=== PATIENT | female | born 1960 | race Caucasian/White ===

== ENCOUNTER → 2016-12-04 | Outpatient (CLI) | payer BC ==
[~2016-12-04] MED LIST: ATEN-173 PO; GABA-112 PO; LISI-725 PO; NARA2.5T2; NORT50CA PO
[2016-12-04 18:26] LABS: ALT/SGPT 52 U/L (12-78); AST/SGOT 97 U/L (15-37); BASO % 0.7 %; BASO ABS # 0.04 K/uL (0-0.2); BLOOD UREA NITROGEN 12 mg/dl (7-18); BUN/CREATININE RATIO 16.4 (10-20); CALCIUM 9.1 mg/dl (8.5-10.1); CARBON DIOXIDE 31 mmol/L (21-32); CHLORIDE 104 mmol/L (98-107); COMPLETE YES; CREATININE 0.75 mg/dl (0.60-1.20); GLUCOSE 96 mg/dl (70-99); HEMATOCRIT 42.6 % (37-47); IG% 0.2 %; LYMPH % 27.1 %; MEAN PLATELET VOLUME 12.9 fL (7.4-10.4); MONO % 9.9 %; NEUT % 51.1 %; PLATELET COUNT 110 K/uL (130-400); PLT ESTIMATE DECREASED; POTASSIUM 4.2 mmol/L (3.5-5.1); RED BLOOD COUNT 4.68 M/uL (4.2-5.4); SODIUM 139 mmol/L (136-145); WHITE BLOOD COUNT 5.53 K/uL (4.8-10.8)
[2016-12-04 18:37] LABS: ALB/GLOB RATIO 0.9 (0.9-2); ALKALINE PHOSPHATASE 137 U/L (45-117)
== END | disposition home or self-care (01) ==
LOC: C.LABMFLN 15:06
PROVIDERS: ATTEND Physician Assistant
DX: R00.2 Palpitations (principal); R23.8 Other skin changes; R53.83 Other fatigue

== ENCOUNTER → 2017-10-08 | Outpatient (CLI) | payer BC | END | disposition home or self-care (01) | LOC: C.LABMFLN 08:37 | PROVIDERS: ATTEND Physician Assistant | DX: M54.5 Low back pain (principal) ==

== ENCOUNTER 2022-06-13 18:17 | Inpatient (IN) ==
[2022-06-13] MEDS ORDERED: ALBUT/IPRATROP 3MG/0.5MG NEB 3 ML VIAL NEB ONE (19:16)
[2022-06-13] MEDS ORDERED: DEXAMETHASONE SOD INJ 4 MG/ML VIAL IV STA (19:16)
--- NOTE | 2022-06-13 19:33 | XRay Report ---
XR chest 1V portable HISTORY: 62 years-old Female Sepsis acute sepsis COMPARISON: 05/13/2022 TECHNIQUE: AP view of the chest FINDINGS: Cardiac silhouette is enlarged. Moderate hemidiaphragmatic elevation. Mild nonspecific interstitial c oarsening. No pneumothorax, large pleural effusion or lobar airspace consolidation. Bones appear tiffanie sly intact. IMPRESSION: 1. Interstitial coarsening may be related to pulmonary vascular congestion versus a mild nonspecific pneumonitis. 2. Moderate right hemidiaphragmatic elevation. ACT 112: Negative or not required by law. The above report was generated using voice recognition software. It may contain grammatical, syntax o r spelling errors. Electronically signed by: Thom Romero M.D. 06/13/2022 7:32 PM
--- NOTE | 2022-06-13 19:38 | Emergency Department Note ---
Impression & Plan Hypoxia, Acute bronchitis Admit to the [facility] ED Provider Note NAME: PEEWEE FITZGERALD AGE: 62 SEX: F ARRIVES VIA: Walk-In INFORMANT: Patient ED PROVIDER(S): Ellen Baker DO CHIEF COMPLAINT: Shortness of breath, cough and fever PLAN: Disposition: Admit to the [facility] Condition: Stable on supplemental oxygen MEDICAL DECISION MAKING: This is a 62-year-old female patient with a history of bronchitis who presents to the emergency department with significant cough, shortness of breath and fever. Chest x-ray showed no evidence of pulmonary opacity or consolidation. There was mild pulmonary vascular congestion. Laboratory studies showed no leukocytosis. She was thrombocytopenic which is a chronic issue for this patient. Patient's H/H were elevated. There was no evidence of renal insufficiency or significant electrolyte abnormality. Her clinical presentation was consistent with an acute episode of bronchitis. Her O2 saturations would not remain above 90% without supplemental oxygen. Patient's clinical presentation improved only slightly after an hour-long DuoNeb treatment and IV Decadron. the wheezing improved and she felt slightly more comfortable. I did not feel the patient was appropriate for discharge and [facility] for further management. Triage Nursing notes reviewed and agree with them. Vital Signs: reviewed and remarkable for hypoxia tachycardia and hypertension Differential diagnosis: Pneumonia, bronchitis, COVID-19, influenza ER treatment provided: Supplemental oxygen, threat monitoring analyst, hour-long DuoNeb treatment, IV Decadron Diagnostics interpreted by me: ECG: Normal sinus rhythm at a rate of [address] segment elevation or signs of ischemia. There is no ectopy. QTc is 420 ms. Cardiac Monitoring: Sinus tachycardia at 110 Laboratory studies: See below Imaging studies: As per radiology interpretation my review Portable chest x-ray: See report HPI: 62/F arrives for evaluation of cough, shortness of breath, and fever. Patient developed cough, shortness of breath and fever approximately 5 days ago. Symptoms have persisted. Her PCP recommended that she come to the hospital 3 days ago when she had a pulse ox that was below 90. Patient had her initial 2 COVID shots but did not have any boosters. She has remote history of smoking. She does have a history of intermittent episodes of chest pain. She denies any history of pneumonia but has had bronchitis in the past PAST MEDICAL HISTORY:Bronchitis, hypertension, depression and anxiety. PAST SURGICAL HISTORY:See Below FAMILY HISTORY:See Below SOCIAL HISTORY:See Below HOME MEDICATIONS: See list ALLERGIES: None VITALS:See Below PHYSICAL EXAMINATION: HEENT: Head - normocephalic and atraumatic. Pupils are equal, round, and reactive to light. Extraocular eye muscles are intact, and sclera are anicteric. Nose - moist nasal mucosa without discharge. Mouth - moist buccal mucosa. Oropharynx is nonerythematous and there is no tonsillar exudate or edema noted. Neck: Supple; no JVD or cervical lymphadenopathy Heart: Tachycardic rate and rhythm. There is a normal S1 and S2 with no murmurs, clicks, or gallops appreciated. Lungs: Diffuse inspiratory and expiratory wheezes with rhonchi at the bases. Abdomen: Soft, completely nontender, nondistended, with good bowel sounds. There are no palpable pulsatile masses or hepatosplenomegaly. There is no guarding, rigidity, or rebound noted. Extremities: No evidence of cyanosis, clubbing, or edema. There are easily pa lpable peripheral pulses. Skin: warm and diaphoretic with good turgor and no rashes. ED COURSE: Times/Reassessments: 700 the patient was evaluated in room C6. A complete history and physical was performed. An IV lock was initiated and COVID testing was performed. Patient was placed on the threat monitoring analyst and pulse oximeter. Patient was in a sinus tachycardia at a rate of 110. A twelve-lead EKG was obtained as described above. Patient was hypoxic without supplemental oxygen. Portable chest x-ray was performed. An hour-long DuoNeb was initiated. She was given 10 mg of IV Decadron. I reevaluated the patient as the DuoNeb continued. Her respiratory rate had come down somewhat and she seemed to be breathing more easily. O2 saturations were in the mid 90s. I reviewed the results of the chest x-ray with her. After the DuoNeb treatment was complete and the patient was given some time to rest, we removed supplemental oxygen and the O2 saturations dropped into the 80s. I will discussed the case with the [facility] Hospitalist and they will evaluate for further management. I have personally spent greater than 30 minutes of critical care time in the direct management of this patient. This includes bedside care, interpretation of diagnostic studies, and testing, discussion with consultants, patient, and family members, and other required patient management activities. This 30 minutes is in excess of all separately billable procedures. Ellen Baker DO Past Med/Surg History Medical History (Updated 06/14/22 @ 16:52 by Ellen Baker DO) Anxiety Depression Glaucoma HTN (hypertension) Hypothyroidism Neuropathy feet/hands Surgical History History of appendectomy Hx of section x3 Hx of eye surgery right - tear Hx of tonsillectomy Hx of tooth extraction full mouth extraction - upper dentures Hx of wisdom tooth extraction Family History Mother Diabetes Aunt Breast cancer Social History Smoking Status: Former smoker Smoking End Date: stopped 2 years ago; Second Hand Exposure: No; Hx Alcohol Use: No (stopped) Hx Substance Use: No Preferred Language: Turkish Communication Ability: Effective Weigh Machine Operator Required: No Beliefs That Will Affect Care: None Current Living Situation: Family Current Living Situation Comment: lives with [facility] Other Information That Helps Us Care for You: No Feels Safe at Home: Yes Safety Concerns: Feels Safe At This Time Assistive Devices: Denture - Upper and Glasses Allergies Allergies Allergy/AdvReac Type Severity Reaction Status Date / Time No Known Allergies Allergy Verified 06/13/22 20:31 Home Meds Home Medications Medication Instructions Recorded Confirmed bupropion HCl 150 mg 24 hr tablet, 150 mg PO QAM 02/04/22 06/13/22 extended release (Wellbutrin XL) gabapentin 600 mg tablet 600 mg PO DAILY PRN Neuropathy 02/04/22 06/13/22 levothyroxine 75 mcg tablet 75 mcg PO DAILYBB 02/04/22 06/13/22 lisinopril 20 mg tablet 20 mg PO QAM 02/04/22 06/13/22 timolol 0.25 % eye drops 1 drp [facility] 02/04/22 06/13/22 Results & Data (ED) Vital Signs Vital Signs - 24 hr 06/13/22 18:23 06/13/22 18:27 06/13/22 19:05 Temperature 36.7 C Temperature Source Temporal Artery Scan Pulse Rate 101 H Pulse Rate [Apical] Pulse Rate from SpO2 Sensor Pulse Rhythm [Apical] Pulse Strength [Apical] Respiratory Rate 26 H Respiratory Effort / Characteristics Respiratory Depth Respiratory Pattern Blood Pressure 158/88 H Blood Pressure [Left Arm] Blood Pressure Mean 111 Blood Pressure Mean [Left Arm] Pulse Oximetry 88 L 94 94 Oxygen Delivery Method Room Air Nasal Cannula Nasal Cannula Oxygen Flow Rate 2 2 Sepsis Recent Fever Within 48 Hours Yes Sepsis New/Unexplained Change in Mental Status N/A Sepsis Action Taken by Nursing No Action Required 06/13/22 19:05 06/13/22 19:05 06/13/22 19:05 Temperature Temperature Source Pulse Rate 95 H Pulse Rate [Apical] Pulse Rate from SpO2 Sensor Pulse Rhythm [Apical] Pulse Strength [Apical] Respiratory Rate 24 22 Respiratory Effort / Characteristics Spontaneous Accessory Muscle Use Labored Respiratory Depth Respiratory Pattern Blood Pressure Blood Pressure [Left Arm] Blood Pressure Mean Blood Pressure Mean [Left Arm] Pulse Oximetry 94 94 94 Oxygen Delivery Method Nasal Cannula Nasal Cannula Nasal Cannula Oxygen Flow Rate 2 2 2 Sepsis Recent Fever Within 48 Hours Sepsis New/Unexplained Change in Mental Status Sepsis Action Taken by Nursing 06/13/22 19:31 06/13/22 19:50 06/13/22 19:51 Temperature Temperature Source Pulse Rate Pulse Rate [Apical] 97 H 93 H Pulse Rate from SpO2 Sensor Pulse Rhythm [Apical] Regular Pulse Strength [Apical] Normal Respiratory Rate 20 21 Respiratory Effort / Characteristics Non-Labored Spontaneous Spontaneous Accessory Muscle Use Short of Breath Spontaneous Short of Breath Respiratory Depth Normal Respiratory Pattern Regular Blood Pressure Blood Pressure [Left Arm] 134/95 Blood Pressure Mean Blood Pressure Mean [Left Arm] 108 Pulse Oximetry 94 96 97 Oxygen Delivery Method Nasal Cannula Nasal Cannula Nasal Cannula Oxygen Flow Rate 2 2 2 Sepsis Recent Fever Within 48 Hours Sepsis New/Unexplained Change in Mental Status Sepsis Action Taken by Nursing 06/13/22 20:30 06/13/22 21:00 06/13/22 22:00 Temperature Temperature Source Pulse Rate 105 H 105 H 102 H Pulse Rate [Apical] Pulse Rate from SpO2 Sensor 105 H 105 H Pulse Rhythm [Apical] Pulse Strength [Apical] Respiratory Rate 20 16 17 Respiratory Effort / Characteristics Respiratory Depth Respiratory Pattern Blood Pressure 121/90 139/87 116/83 Blood Pressure [Left Arm] Blood Pressure Mean 100 104 94 Blood Pressure Mean [Left Arm] Pulse Oximetry 93 92 93 Oxygen Delivery Method Nasal Cannula Nasal Cannula Nasal Cannula Oxygen Flow Rate 2 2 2 Sepsis Recent Fever Within 48 Hours Sepsis New/Unexplained Change in Mental Status Sepsis Action Taken by Nursing 06/13/22 22:30 06/13/22 22:50 06/13/22 23:00 Temperature Temperature Source Pulse Rate 94 H 97 H 93 H Pulse Rate [Apical] Pulse Rate from SpO2 Sensor 96 H 97 H 93 H Pulse Rhythm [Apical] Pulse Strength [Apical] Respiratory Rate 21 23 21 Respiratory Effort / Characteristics Respiratory Depth Respiratory Pattern Blood Pressure 123/91 126/78 Blood Pressure [Left Arm] Blood Pressure Mean 101 94 Blood Pressure Mean [Left Arm] Pulse Oximetry 91 88 L 87 L Oxygen Delivery Method Room Air Room Air Room Air Oxygen Flow Rate Sepsis Recent Fever Within 48 Hours Sepsis New/Unexplained Change in Mental Status Sepsis Action Taken by Nursing 06/13/22 23:30 Temperature Temperature Source Pulse Rate 102 H Pulse Rate [Apical] Pulse Rate from SpO2 Sensor 102 H Pulse Rhythm [Apical] Pulse Strength [Apical] Respiratory Rate 21 Respiratory Effort / Characteristics Respiratory Depth Respiratory Pattern Blood Pressure 107/73 Blood Pressure [Left Arm] Blood Pressure Mean 84 Blood Pressure Mean [Left Arm] Pulse Oximetry 93 Oxygen Delivery Method Nasal Cannula Oxygen Flow Rate 1 Sepsis Recent Fever Within 48 Hours Sepsis New/Unexplained Change in Mental Status Sepsis Action Taken by Nursing Laboratory Data 06/13/22 19:33 06/13/22 19:33 Lab Results 06/13/22 06/13/22 06/13/22 Range/Units 19:33 19:33 19:33 WBC 5.21 (4.8-10.8) K/ul RBC 5.15 (3.93-5.22) M/uL Hgb 16.4 H (12.0-16.0) g/dl Hct 47.0 H (34.1-44.9) % MCV 91.3 (80.0-100.0) fL MCH 31.8 (25.0-34.0) pg MCHC 34.9 (32.0-36.0) g/dL RDW Std Deviation 48.4 H (36.4-46.3) fL RDW Coeff of Elvira 14.4 (11.5-14.5) % Plt Count 90 L (130-400) K/uL MPV 12.3 (9.4-12.3) fL Immature Gran % (Auto) 0.4 % Neut % (Auto) 60.6 % Lymph % (Auto) 23.4 % [place] % (Auto) 13.1 % Eos % (Auto) 2.1 % Baso % (Auto) 0.4 % Neut # (Auto) 3.16 (1.4-6.5) K/uL Lymph # (Auto) 1.22 (1.2-3.4) K/uL [place] # (Auto) 0.68 (0.24-0.82) K/uL Eos # (Auto) 0.11 (0-0.50) K/uL Baso # (Auto) 0.02 (0-0.2) K/uL Immature Gran # (Auto) 0.02 (0.00-0.02) K/uL Platelet Estimate Decreased L (Normal) PT 13.5 H (9.0-12.0) Seconds INR 1.3 H (0.9-1.1) APTT 29.9 (21.0-31.0) Seconds PTT Ratio 1.1 Sodium 136 (136-145) mmol/L Potassium 3.8 (3.5-5.1) mmol/L Chloride 102 (98-107) mmol/L Carbon Dioxide 24 (21-32) mmol/L Anion Gap 10 (3-11) BUN 8 (6-23) mg/dl Creatinine 0.85 (0.6-1.2) mg/dl Est Cr Clr Drug Dosing 69.6 ml/min Est GFR ( Amer) 85.1 ml/min Est GFR (Non-Af Amer) 73.4 ml/min BUN/Creatinine Ratio 9.4 L (10-20) Glucose 94 (70-99(Fasting)) mg/dl Lactate (0.4-2.0) mmol/L Calcium 8.7 (8.5-10.1) mg/dl Magnesium 1.8 (1.7-2.4) mg/dl Total Bilirubin 1.2 H (0.2-1.0) mg/dl Direct Bilirubin 0.4 H (0-0.2) mg/dl AST 114 H (13-39) U/L ALT 50 (7-52) U/L Alkaline Phosphatase 115 H (34-104) U/L Troponin I High Sens 8.7 (0-14) pg/ml Total Protein 7.3 (6.0-8.3) gm/dl Albumin 3.6 (3.4-5.0) gm/dl Globulin 3.7 (2.5-4.0) gm/dl Albumin/Globulin Ratio 1.0 (0.9-2) Procalcitonin (0-0.5) ng/ml SARS-CoV-2 (PCR) (Negative) Influenza Type A (PCR) (Neg) Influenza Type B (PCR) (Neg) RSV (RT-PCR) (Neg) 06/13/22 06/13/22 06/13/22 Range/Units 19:33 19:33 19:36 WBC (4.8-10.8) K/ul RBC (3.93-5.22) M/uL Hgb (12.0-16.0) g/dl Hct (34.1-44.9) % MCV (80.0-100.0) fL MCH (25.0-34.0) pg MCHC (32.0-36.0) g/dL RDW Std Deviation (36.4-46.3) fL RDW Coeff of Elvira (11.5-14.5) % Plt Count (130-400) K/uL MPV (9.4-12.3) fL Immature Gran % (Auto) % Neut % (Auto) % Lymph % (Auto) % [place] % (Auto) % Eos % (Auto) % Baso % (Auto) % Neut # (Auto) (1.4-6.5) K/uL Lymph # (Auto) (1.2-3.4) K/uL [place] # (Auto) (0.24-0.82) K/uL Eos # (Auto) (0-0.50) K/uL Baso # (Auto) (0-0.2) K/uL Immature Gran # (Auto) (0.00-0.02) K/uL Platelet Estimate (Normal) PT (9.0-12.0) Seconds INR (0.9-1.1) APTT (21.0-31.0) Seconds PTT Ratio Sodium (136-145) mmol/L Potassium (3.5-5.1) mmol/L Chloride (98-107) mmol/L Carbon Dioxide (21-32) mmol/L Anion Gap (3-11) BUN (6-23) mg/dl Creatinine (0.6-1.2) mg/dl Est Cr Clr Drug Dosing ml/min Est GFR ( Amer) ml/min Est GFR (Non-Af Amer) ml/min BUN/Creatinine Ratio (10-20) Glucose (70-99(Fasting)) mg/dl Lactate 1.8 (0.4-2.0) mmol/L Calcium (8.5-10.1) mg/dl Magnesium (1.7-2.4) mg/dl Total Bilirubin (0.2-1.0) mg/dl Direct Bilirubin (0-0.2) mg/dl AST (13-39) U/L ALT (7-52) U/L Alkaline Phosphatase (34-104) U/L Troponin I High Sens (0-14) pg/ml Total Protein (6.0-8.3) gm/dl Albumin (3.4-5.0) gm/dl Globulin (2.5-4.0) gm/dl Albumin/Globulin Ratio (0.9-2) Procalcitonin 0.06 (0-0.5) ng/ml SARS-CoV-2 (PCR) NEGATIVE (Negative) Influenza Type A (PCR) Negative (Neg) Influenza Type B (PCR) Negative (Neg) RSV (RT-PCR) Negative (Neg) Administered Medications Albuterol (Albut/Ipratrop 3mg/0.5mg Neb 3 Ml Vial) 3 ml NEB QIDR [facility]; Protocol Stop: 07/14/22 06:59 Last Admin: 06/14/22 15:12 Dose: 3 ml Documented By: Admin: 06/14/22 11:00 Dose: 3 ml Documented By: Admin: 06/14/22 07:01 Dose: 3 ml Documented By: MATT Azithromycin (Azithromycin 250 Mg Tab) 250 mg PO [facility] Stop: 06/17/22 09:01 Last Admin: 06/14/22 13:09 Dose: 250 mg Documented By: CHERYL Bupropion HCl (Bupropion Xl 150 Mg Tabcr) 150 mg PO [facility] Stop: 07/14/22 08:59 Last Admin: 06/14/22 09:28 Dose: 150 mg Documented By: CHERYL Gabapentin (Gabapentin 600 Mg Tab) 600 mg PO DAILY PRN PRN Reason: Neuropathy Stop: 07/14/22 02:03 Last Admin: 06/14/22 09:28 Dose: 600 mg Documented By: CHERYL Guaifenesin (Guaifenesin 600 Mg Tabcr) 1,200 mg PO Q12 [facility] Stop: 07/14/22 08:59 Last Admin: 06/14/22 09:27 Dose: 1,200 mg Documented By: CHERYL Methylprednisolone 40 mg/ (Syringe) 0.64 mls @ 1.5 mls/min IV BID JACOB Stop: 06/14/22 21:00 Last Admin: 06/14/22 10:08 Dose: 1.5 mls/min Documented By: CHERYL Levothyroxine Sodium (Levothyroxine Sodium 75 Mcg Tablet) 75 mcg PO DAILYBB [facility] Stop: 07/14/22 06:29 Last Admin: 06/14/22 06:16 Dose: 75 mcg Documented By: ORA Lisinopril (Lisinopril 20 Mg Tab) 20 mg PO QAM JACOB Stop: 07/14/22 08:59 Last Admin: 06/14/22 09:27 Dose: 20 mg Documented By: CHERYL Timolol Maleate (Timolol Maleate 0.25% Op Soln 5 Ml Btl) 1 drops OP BID [facility] Stop: 07/14/22 08:59 Last Admin: 06/14/22 09:28 Dose: 1 drops Documented By: CHERYL Discontinued Medications Albuterol (Albut/Ipratrop 3mg/0.5mg Neb 3 Ml Vial) 12 ml NEB ONE ONE; Protocol Stop: 06/13/22 19:17 Last Admin: 06/13/22 19:30 Dose: 12 ml Documented By: STS Benzonatate (Benzonatate 100 Mg Capsule) 100 mg PO NOW ONE Stop: 06/14/22 02:40 Last Admin: 06/14/22 02:49 Dose: 100 mg Documented By: CR Dexamethasone (Dexamethasone Sod Inj 4 Mg/Ml Vial) 10 mg IV NOW STA Stop: 06/13/22 19:17 Last Admin: 06/13/22 19:44 Dose: 10 mg Documented By: GIGI Hydrocodone Bit/Homatropine Methylb (Hydrocodone/Homatropine Syrup 5mg/1.5mg 5ml Udp) 5 ml PO NOW STA Stop: 06/14/22 08:58 Last Admin: 06/14/22 09:26 Dose: 5 ml Documented By: CHERYL Azithromycin 500 mg/ Dextrose 255 mls @ 125 mls/hr IV ONE ONE Stop: 06/14/22 05:02 Last Infusion: 06/14/22 04:52 Dose: 0 mls/hr Documented By: Admin: 06/14/22 02:49 Dose: 125 mls/hr Documented By: ORA Imaging Data Radiologist's Impression: Chest X-Ray 06/13/22 19:12 XR chest 1V portable HISTORY: 62 years-old Female Sepsis acute sepsis COMPARISON: 05/13/2022 TECHNIQUE: AP view of the chest FINDINGS: Cardiac silhouette is enlarged. Moderate hemidiaphragmatic elevation. Mild nonspecific interstitial coarsening. No pneumothorax, large pleural effusion or lobar airspace consolidation. Bones appear grossly intact. IMPRESSION: 1. Interstitial coarsening may be related to pulmonary vascular congestion versus a mild nonspecific pneumonitis. 2. Moderate right hemidiaphragmatic elevation. ACT 112: Negative or not required by law. The above report was generated using voice recognition software. It may contain grammatical, syntax or spelling errors. Electronically signed by: Thom Romero M.D. 06/13/2022 7:32 PM Discharge Plan Visit Data Chief Complaint: Shortness of Breath/Dyspnea Stated Complaint: SOB, CHEST PAIN, COUGH, FEVER ED Provider: Ellen Baker Discharge Problem: Hypoxia, Acute bronchitis Patient Disposition: Admitted As Inpatient Discharge Instructions Interventions: ED Discharge Assessment Last Done: 06/14/22 02:24 : Acute bronchitis Qualifiers: Bronchitis organism: unspecified organism Qualified Code(s): J20.9 - Acute bronchitis, unspecified
[2022-06-13 19:52] LABS: Hemoglobin 16.4 g/dl (12.0-16.0); Mean Corpuscular Hemoglobin 31.8 pg (25.0-34.0); Mean Corpuscular Hgb Conc 34.9 g/dL (32.0-36.0); Mean Corpuscular Volume 91.3 fL (80.0-100.0); RDW Coefficient of Variation 14.4 % (11.5-14.5); RDW Standard Deviation 48.4 fL (36.4-46.3); Red Blood Count 5.15 M/uL (3.93-5.22); White Blood Count 5.21 K/ul (4.8-10.8)
[2022-06-13 19:56] LABS: INR 1.3 (0.9-1.1); Partial Thromboplastin Ratio 1.1; Partial Thromboplastin Time 29.9 Seconds (21.0-31.0); Prothrombin Time 13.5 Seconds (9.0-12.0)
[2022-06-13 20:07] LABS: Basophils # (auto) 0.02 K/uL (0-0.2); Basophils % (auto) 0.4 %; Eosinophils # (auto) 0.11 K/uL (0-0.50); Eosinophils % (auto) 2.1 %; Immature Granulocytes # (auto) 0.02 K/uL (0.00-0.02); Immature Granulocytes % (auto) 0.4 %; Lymphocytes # (auto) 1.22 K/uL (1.2-3.4); Lymphocytes % (auto) 23.4 %; Mean Platelet Volume 12.3 fL (9.4-12.3); Monocytes # (auto) 0.68 K/uL (0.24-0.82); Monocytes % (auto) 13.1 %; Neutrophils # (auto) 3.16 K/uL (1.4-6.5); Neutrophils % (auto) 60.6 %; Platelet Count 90 K/uL (130-400); Platelet Estimate Decreased (Normal)
[2022-06-13 20:08] LABS: Albumin Level 3.6 gm/dl (3.4-5.0); BUN Creatinine Ratio 9.4 (10-20); Bilirubin Direct 0.4 mg/dl (0-0.2); Bilirubin,Total 1.2 mg/dl (0.2-1.0); Calcium 8.7 mg/dl (8.5-10.1); Creatinine Clr Calc Pharmacy 69.6 ml/min; Est GFR (African American) 85.1 ml/min; Est GFR (Non-African American) 73.4 ml/min; Globulin 3.7 gm/dl (2.5-4.0); Magnesium 1.8 mg/dl (1.7-2.4); Potassium 3.8 mmol/L (3.5-5.1); Total Protein 7.3 gm/dl (6.0-8.3)
[2022-06-13 20:09] LABS: Troponin I High Sensitivity 8.7 pg/ml (0-14)
[2022-06-13 20:21] LABS: Influenza A virus by PCR Negative (Neg); Influenza B virus by PCR Negative (Neg); RSV by PCR Negative (Neg); SARS CoV2 RNA(COVID-19) Ceph NEGATIVE (Negative)
--- NOTE | 2022-06-13 23:35 | History & Physical Report ---
Date of Service June 13, 2022 Assessment & Plan (1) Asthmatic bronchitis: (2) Glaucoma: (3) Neuropathy: (4) Hypothyroidism: (5) Depression: (6) Anxiety: (7) HTN (hypertension): Plan Asthmatic bronchitis with hypoxia- Status post dexamethasone 10 mg IV and a DuoNeb treatment in the ED Methylprednisolone 40 mg IV every 8 hours Azithromycin 500 mg IV today, then 250 mg p.o. daily x4 days Guaifenesin extended release 12 mg p.o. every 12 hours Duonebs every 4 hours while awake and every 2 hours when necessary. Nasal cannula oxygen, titrate to keep pulse ox 93-94% Hypertension- Continue lisinopril 20 mg every morning Hypothyroidism- Continue levothyroxine sodium 75 mcg daily Anxiety and depression- Continue bupropion XL 150 mg every morning Peripheral neuropathy- Continue gabapentin 600 mg daily as needed Glaucoma- Continue timolol 1 drop in right eye twice daily History of Present Illness Chief Complaint: The patient presents to the emergency department with complaint of 5 days of pr ogressively worsening cough, shortness of breath and today developed a temperature. Primary Care Provider: Carlos Basurto DO The patient is a 62-year-old female with a past medical history including depression, neuropathy, hypothyroidism, hypertension and glaucoma she presents to the emergency department with complaints noted above. Pulse ox in the emergency department bottomed at a level of 87%, and improved to 93% on 2 L nasal cannula oxygen. She did have some mild subjective improvement following dexamethasone 10 mg IV and a DuoNeb treatment from the ED Allergies Allergy/AdvReac Type Severity Reaction Status Date / Time No Known Allergies Allergy Verified 06/13/22 20:31 Home Medications Medication Instructions Recorded Confirmed Type bupropion HCl 150 mg 24 hr tablet, 150 mg PO QAM 02/04/22 06/13/22 History extended release (Wellbutrin XL) gabapentin 600 mg tablet 600 mg PO DAILY PRN Neuropathy 02/04/22 06/13/22 History levothyroxine 75 mcg tablet 75 mcg PO DAILYBB 02/04/22 06/13/22 History lisinopril 20 mg tablet 20 mg PO QAM 02/04/22 06/13/22 History timolol 0.25 % eye drops 1 drp [facility] 02/04/22 06/13/22 History Past Med/Surg History Medical History (Updated 01/21/23 @ 04:18 by Robbie Soler MD) Anxiety Depression Glaucoma HTN (hypertension) Hypothyroidism Neuropathy feet/hands Surgical History History of appendectomy Hx of section x3 Hx of eye surgery right - tear Hx of tonsillectomy Hx of tooth extraction full mouth extraction - upper dentures Hx of wisdom tooth extraction Family History Mother Diabetes Aunt Breast cancer Social History Smoking Status: Former smoker Smoking End Date: stopped 2 years ago; Second Hand Exposure: No; Hx Alcohol Use: No (stopped) Hx Substance Use: No Preferred Language: Tajik Communication Ability: Effective Online Merchandising Manager Required: No Beliefs That Will Affect Care: None Current Living Situation: Family Current Living Situation Comment: lives with [facility] Other Information That Helps Us Care for You: No Feels Safe at Home: Yes Safety Concerns: Feels Safe At This Time Assistive Devices: Denture - Upper and Glasses Review of Systems Review of Systems: The patient denies chest pain, palpitations, lower extremity swelling, sore throat, fevers, chills, sweats, nausea, vomiting, diarrhea , constipation, abdominal pain, pelvic pain, blood in urine or stool, dysuria, urinary frequency or urgency, lightheadedness, dizziness, headache, memory loss, loss of consciousness, rash, abnormal bruising or bleeding, imbalance, focal or generalized weakness, numbness or tingling in arms or legs, generalized arthralgias or myalgias, back or neck pain, or night sweats. The review of systems is otherwise negative other than for that already noted above, and at least 10 systems have been reviewed. Physical Exam Physical Exam: The patient is awake, alert and oriented 3, well developed and well nourished, normocephalic and atraumatic, lying in bed and in no acute distress. HEENT--PERRL, EOMI, mucous membranes and oropharynx dry. Neck--supple. No JVD. No bruits. Thyroid normal, trachea midline, no adenopathy. Heart--normal S1 and S2. No murmurs, rubs or gallops. Lungs--coarse breath sounds with wheezes bilaterally. No respiratory distress, no accessory muscle use. Abdomen--normal bowel sounds and soft. Nontender. Nondistended, no hernias or masses, no organomegaly. Obese Extremities--no cyanosis or clubbing. No edema. Dermatologic--normal skin turgor, normal color, no abnormal lymph nodes, no rash. Neurologic--cranial nerves II through XII grossly intact. Rheumatologic--normal range of motion. Psychiatric--normal affect. Results & Data Results & Data ([facility]) Vital Signs (Past 12 Hours) Vital Signs Temp Pulse Pulse Resp BP BP Pulse Ox 06/13/22 23:00 93 H 21 126/78 87 L 06/13/22 22:50 97 H 23 88 L 06/13/22 22:30 94 H 21 123/91 91 06/13/22 22:00 102 H 17 116/83 93 06/13/22 21:00 105 H 16 139/87 92 06/13/22 20:30 105 H 20 121/90 93 06/13/22 19:51 97 06/13/22 19:50 93 H 21 134/95 96 06/13/22 19:31 97 H 20 94 06/13/22 19:05 95 H 22 94 06/13/22 19:05 94 06/13/22 19:05 24 94 06/13/22 19:05 94 06/13/22 18:27 94 06/13/22 18:23 36.7 C 101 H 26 H 158/88 H 88 L O2 Del Method O2 Flow Rate 06/13/22 23:00 Room Air 06/13/22 22:50 Room Air 06/13/22 22:30 Room Air 06/13/22 22:00 Nasal Cannula 2 06/13/22 21:00 Nasal Cannula 2 06/13/22 20:30 Nasal Cannula 2 06/13/22 19:51 Nasal Cannula 2 06/13/22 19:50 Nasal Cannula 2 06/13/22 19:31 Nasal Cannula 2 06/13/22 19:05 Nasal Cannula 2 06/13/22 19:05 Nasal Cannula 2 06/13/22 19:05 Nasal Cannula 2 06/13/22 19:05 Nasal Cannula 2 06/13/22 18:27 Nasal Cannula 2 06/13/22 18:23 Room Air Laboratory Results Laboratory Results WBC 5.21 K/ul (4.8-10.8) 06/13/22 19: RBC 5.15 M/uL (3.93-5.22) 06/13/22 19: Hgb 16.4 g/dl (12.0-16.0) H 06/13/22 19: Hct 47.0 % (34.1-44.9) H 06/13/22 19: MCV 91.3 fL (80.0-100.0) 06/13/22: MCH 31.8 pg (25.0-34.0) 06/13/22: MCHC 34.9 g/dL (32.0-36.0) 06/13/22: RDW Std Deviation 48.4 fL (36.4-46.3) H 06/13/22: RDW Coeff of Elvira 14.4 % (11.5-14.5) 06/13/22: Plt Count 90 K/uL (130-400) L 06/13/22: MPV 12.3 fL (9.4-12.3) 06/13/22: Immature Gran % (Auto) 0.4 % 06/13/22: Neut % (Auto) 60.6 % 06/13/22: Lymph % (Auto) 23.4 % 06/13/22: [place] % (Auto) 13.1 % 06/13/22: Eos % (Auto) 2.1 % 06/13/22: Baso % (Auto) 0.4 % 06/13/22: Neut # (Auto) 3.16 K/uL (1.4-6.5) 06/13/22: Lymph # (Auto) 1.22 K/uL (1.2-3.4) 06/13/22: [place] # (Auto) 0.68 K/uL (0.24-0.82) 06/13/22 19: Eos # (Auto) 0.11 K/uL (0-0.50) 06/13/22: Baso # (Auto) 0.02 K/uL (0-0.2) 06/13/22:33 Immature Gran # (Auto) 0.02 K/uL (0.00-0.02) 06/13/22 19:33 Platelet Estimate Decreased (Normal) L 06/13/22 19:33 PT 13.5 Seconds (9.0-12.0) H 06/13/22 19:33 INR 1.3 (0.9-1.1) H 06/13/22 19:33 APTT 29.9 Seconds (21.0-31.0) 06/13/22 19:33 PTT Ratio 1.1 06/13/22 19:33 Sodium 136 mmol/L (136-145) 06/13/22 19:33 Potassium 3.8 mmol/L (3.5-5.1) 06/13/22 19:33 Chloride 102 mmol/L (98-107) 06/13/22 19:33 Carbon Dioxide 24 mmol/L (21-32) 06/13/22 19:33 Anion Gap 10 (3-11) 06/13/22 19:33 BUN 8 mg/dl (6-23) 06/13/22 19:33 Creatinine 0.85 mg/dl (0.6-1.2) 06/13/22 19:33 Est Cr Clr Drug Dosing 69.6 ml/min 06/13/22 19:33 Est GFR ( Amer) 85.1 ml/min 06/13/22 19:33 Est GFR (Non-Af Amer) 73.4 ml/min 06/13/22 19:33 BUN/Creatinine Ratio 9.4 (10-20) L 06/13/22 19:33 Glucose 94 mg/dl (70-99(Fasting)) 06/13/22 19:33 Lactate 1.8 mmol/L (0.4-2.0) 06/13/22 19:33 Calcium 8.7 mg/dl (8.5-10.1) 06/13/22 19:33 Magnesium 1.8 mg/dl (1.7-2.4) 06/13/22 19:33 Total Bilirubin 1.2 mg/dl (0.2-1.0) H 06/13/22 19:33 Direct Bilirubin 0.4 mg/dl (0-0.2) H 06/13/22 19:33 AST 114 U/L (13-39) H 06/13/22 19:33 ALT 50 U/L (7-52) 06/13/22 19: Alkaline Phosphatase 115 U/L (34-104) H 06/13/22 19: Troponin I High Sens 8.7 pg/ml (0-14) 06/13/22 19: Total Protein 7.3 gm/dl (6.0-8.3) 06/13/22: Albumin 3.6 gm/dl (3.4-5.0) 06/13/22: Globulin 3.7 gm/dl (2.5-4.0) 06/13/22: Albumin/Globulin Ratio 1.0 (0.9-2) 06/13/22: Procalcitonin 0.06 ng/ml (0-0.5) 06/13/22: Urine Color Dark Yellow 06/14/22 00:00 Urine Appearance Cloudy (Clear) A 06/14/22 00:00 Urine pH 5.5 (4.5-7.5) 06/14/22 00:00 Ur Specific [place] 1.021 (1.000-1.030) 06/14/22 00:00 Urine Protein 1+ (Negative) H 06/14/22 00:00 Urine Glucose (UA) Negative (Negative) 06/14/22 00:00 Urine Ketones Trace (Negative) H 06/14/22 00:00 Urine Blood Negative (Negative) 06/14/22 00:00 Urine Nitrite Negative (Negative) 06/14/22 00:00 Urine Bilirubin Negative (Negative) 06/14/22 00:00 Urine Urobilinogen Negative (Negative) 06/14/22 00:00 Ur Leukocyte Esterase Trace (Negative) H 06/14/22 00:00 Urine WBC (Auto) 5-10 /hpf (0-5) H 06/14/22 00:00 Urine RBC (Auto) 5-10 /hpf (0-4) H 06/14/22 00:00 U Hyaline Cast (Auto) 10-30 /lpf (0-5) H 06/14/22 00:00 U Epithel Cells (Auto) >30 /lpf (0-5) H 06/14/22 00:00 Urine Bacteria (Auto) 2+ (Negative) H 06/14/22 00:00 SARS-CoV-2 (PCR) NEGATIVE (Negative) 06/13/22 19:36 Influenza Type A (PCR) Negative (Neg) 06/13/22 19:36 Influenza Type B (PCR) Negative (Neg) 06/13/22 19:36 RSV (RT-PCR) Negative (Neg) 06/13/22 19:36 Impressions Chest X-Ray 06/13/22 19:12 XR chest 1V portable HISTORY: 62 years-old Female Sepsis acute sepsis COMPARISON: 05/13/2022 TECHNIQUE: AP view of the chest FINDINGS: Cardiac silhouette is enlarged. Moderate hemidiaphragmatic elevation. Mild nonspecific interstitial coarsening. No pneumothorax, large pleural effusion or lobar airspace consolidation. Bones appear grossly intact. IMPRESSION: 1. Interstitial coarsening may be related to pulmonary vascular congestion versus a mild nonspecific pneumonitis. 2. Moderate right hemidiaphragmatic elevation. ACT 112: Negative or not required by law. The above report was generated using voice recognition software. It may contain grammatical, syntax or spelling errors. Electronically signed by: Thom Romero M.D. 06/13/2022 7:32 PM Code Status & VTE Plan Code Status Full code VTE Prophylaxis Plan VTE Prophylaxis will be ordered: Yes PG Care Time/CCT Total # of Minutes Spent Total Time Spent with Patient: Total time spent is greater than 50% in coordination of care (as documented) at patient's floor/unit and/or counseling patient: Coding Level of Care Code 86010 INT INP/OBS CARE 3/75MIN Diagnoses Asthmatic bronchitis J45.909 Glaucoma H40.9 Neuropathy G62.9 Hypothyroidism E03.9 Depression F32.A Anxiety F41.9 HTN (hypertension) I10
[2022-06-14 01:33] LABS: Appearance Urine Cloudy (Clear); Bacteria Urine Automated 2+ (Negative); Bilirubin Urine Negative (Negative); Blood Urine Negative (Negative); Color Urine Dark Yellow; Epithelial Cell Urine Auto >30 /lpf (0-5); Glucose Urine UA Negative (Negative); Ketones Urine Trace (Negative); Leukocyte Esterase Urine Trace (Negative); Nitrite Urine Negative (Negative); Protein Urine 1+ (Negative); Specific Gravity Urine 1.021 (1.000-1.030); Urobilinogen Urine Negative (Negative); pH Urine 5.5 (4.5-7.5)
[2022-06-14] MEDS ORDERED: ONDANSETRON INJ 2 MG/ML 2 ML VIAL IV PRN (02:04)
[2022-06-14] MEDS ORDERED: ACETAMINOPHEN 325 MG TAB PO PRN (02:04)
[2022-06-14] MEDS ORDERED: BENZONATATE 100 MG CAPSULE PO ONE (02:39)
[2022-06-14] MEDS ORDERED: AZITHROMYCIN 500 MG in DEXTROSE 5% 250 ML IV ONE (03:00)
[2022-06-14] MEDS: LEVOTHYROXINE SODIUM 75 MCG TABLET PO SCH (06:16)
[2022-06-14 06:38] LABS: Basophils # (auto) 0.01 K/uL (0-0.2); Basophils % (auto) 0.3 %; Hematocrit (blood only) 43.6 % (34.1-44.9); Hemoglobin 15.8 g/dl (12.0-16.0); Immature Granulocytes # (auto) 0.01 K/uL (0.00-0.02); Immature Granulocytes % (auto) 0.3 %; Lymphocytes % (auto) 20.6 %; Mean Corpuscular Hgb Conc 36.2 g/dL (32.0-36.0); Mean Corpuscular Volume 88.3 fL (80.0-100.0); Monocytes # (auto) 0.18 K/uL (0.24-0.82); Monocytes % (auto) 5.3 %; Neutrophils # (auto) 2.49 K/uL (1.4-6.5); Neutrophils % (auto) 73.5 %; Platelet Count 96 K/uL (130-400); RDW Coefficient of Variation 13.9 % (11.5-14.5); RDW Standard Deviation 44.7 fL (36.4-46.3); Red Blood Count 4.94 M/uL (3.93-5.22); White Blood Count 3.39 K/ul (4.8-10.8)
[2022-06-14] MEDS: ALBUT/IPRATROP 3MG/0.5MG NEB 3 ML VIAL NEB SCH ×4 (07:01→19:16)
[2022-06-14 07:14] LABS: Albumin Level 3.6 gm/dl (3.4-5.0); Calcium 8.6 mg/dl (8.5-10.1)
[2022-06-14 07:20] LABS: BUN Creatinine Ratio 14.1 (10-20); Creatinine Clr Calc Pharmacy 77.4 ml/min; Est GFR (African American) 94.4 ml/min; Est GFR (Non-African American) 81.5 ml/min; Phosphorus 2.9 mg/dl (2.5-4.9)
--- NOTE | 2022-06-14 07:48 | Hospitalist Progress Note ---
Date of Service June 14, 2022 Assessment & Plan (1) Asthmatic bronchitis: Plan: 62-year-old female with history of HTN, hypothyroidism, anxiety and depression presented to [facility] for evaluation of SOB and respiratory symptoms x 5 days, subsequently found to be hypoxic in the ED. Her presentation seems to be most consistent with viral pneumonia. Hypoxia -- primarily suspect viral - Reported approx. 5 days of cough, shortness of breath, constitutional symptoms - Work-up as follows: -- Leukopenia with low monocytes, lymphopenia -- Mild transaminitis with elevated TBili, INR, thrombocytopenia, depressed Na -- CXR demonstrating interstitial coarsening -- PCT negative. BCX pending. - Suspect related to viral pneumonia vs. asthmatic bronchitis, especially given lab derangements and coarse of symptoms. Lower c/f pulmonary edema from hepatic or cardiac-related process, but considered given LFTs. Thankfully responding quite well to therapy - Symptom management as follows: -- DuoNebs q4hwa and PRN -- Methylprednisolone 40mg b.i.d. ordered (reduced from t.i.d.) -- Azithromycin x 5 days -- Hycodan PRN -- Guaifenacin Transaminitis -- hepatocellular pattern, does report significant drinking history (quit 3 years ago) - In context of respiratory illness, leukopenia with lymphopenia and low monocytes - Admission labs revealing TBili 1.2 (DBili 0.4), AST 114, ALT 50, ALP 115, Alb 3.6, INR 1.3, Na 133 - Recheck LFTs now - Suspect related to viral illness. No known h/o cirrhosis. Low s/f tickborne, DILI. - RUQ will be checked given transaminitis, Na, INR, thrombocytopenia-related derangements to assess for fibrotic changes and echogenicity Thrombocytopenia - Suspect secondary to viral illness. Hepatic etiology also considered for reasons aforementioned. Lower s/f ITP. - Monitor CBC to ensure no persistent drop. Supportive care for now. - Consider smear if worsening Leukopenia - With relative lymphopenia, decreased monocytes - Suspect secondary to viral illness, as above. Lower s/f tickborne or primary hematologic - Await BCX - Consider smear if worsening Hypertension - Continue lisinopril 20 mg every morning Hypothyroidism - Continue levothyroxine sodium 75 mcg daily Anxiety and depression - Continue bupropion XL 150 mg every morning Peripheral neuropathy - Continue gabapentin 600 mg daily as needed Glaucoma - Continue timolol 1 drop in right eye twice daily Code: Full Diet: Regular Dispo: MS/T PPX: SCDs (2) Glaucoma: (3) Neuropathy: (4) Hypothyroidism: (5) Depression: (6) Anxiety: (7) HTN (hypertension): Admission and Anticipated Discharge Date Admission Date: June 13, 2022 Supervising Physician Co-Signing Physician Notes I personally examined the patient and verified all sullivan points of history and exam, discussed case, and agree with decision making with Dr Ruano. Still feeling very tired. Easily dyspneic. Cough worse when she lays down. Vitals noted, in general she is awake and alert pleasant no distress. HEENT normocephalic atraumatic mucous membranes moist. Lungs coarse, sinuses tender. Acute viral bronchitis/probably viral pneumonia with hypoxic respiratory failureas well as concomitant sinusitissteroids, supportive care, add Afrin to try to help with postnasal drip mediated cough. Continue supportive care. Otherwise as above Risk high due to hypoxia and infectious illness Subjective Requiring 2L NC. No significant updates to H&P HPI other than she used to "drink a lot a lot" and quit 3 years ago. Smoked cigarettes for about ~12 years, quit 2 years ago, 1 ppd. Review of Systems Review of Systems: as per HPI Physical Exam Physical Exam: General: 62-year old female who is alert, oriented, but appears tired. HEENT: NCAT. - Eyes - Sclera are white, anicteric, and without injection. - Mouth - MMM - Neck - supple, no appreciable JVD Cardiac: Normal rate and regular rhythm; S1 and S2 present with no murmurs, rubs, or gallops. Pulmonary: Good respiratory effort with symmetric expansion of the chest. No use of accessory muscles. Coarse breath sounds in the RLL, with bilateral expiratory wheezes heard in the upper lung loaiza b/l Abdominal: Normoactive bowel sounds. Abdomen was soft, nondistended, and non- tender to palpation. Extremities: Upper and lower extremities are warm and well perfused. No peripheral edema in the lower extremities bilaterally Psych: Well-developed, well-nourished, appropriately dressed for occasion. Behavior is cooperative and appropriate. Affect is WNL. Insight is appropriate. Results & Data Results & Data ([facility]) Vital Signs (Past 12 Hours) Vital Signs Temp Pulse Pulse Resp BP BP BP 06/14/22 07:00 97 H 06/14/22 07:29 36.5 C 96 H 20 123/85 06/14/22 07:03 95 H 24 06/14/22 02:00 06/14/22 02:04 110 H 06/14/22 02:04 06/14/22 02:00 36.3 C L 107 H 18 151/105 H 06/14/22 00:30 100 H 18 116/87 06/14/22 00:00 99 H 21 99/70 L 06/13/22 23:30 102 H 21 107/73 06/14/22 00:39 102 H 16 116/87 06/13/22 23:00 93 H 21 126/78 06/13/22 22:50 97 H 23 06/13/22 22:30 94 H 21 123/91 06/13/22 22:00 102 H 17 116/83 06/13/22 21:00 105 H 16 139/87 06/13/22 20:30 105 H 20 121/90 06/13/22 19:51 06/13/22 19:50 93 H 21 134/95 Pulse Ox Pulse Ox O2 Del Method O2 Del Method O2 Flow Rate O2 Flow Rate 06/14/22 07:00 06/14/22 07:29 93 Nasal Cannula 2 06/14/22 07:03 92 Room Air 06/14/22 02:00 Nasal Cannula 1 06/14/22 02:04 06/14/22 02:04 92 Nasal Cannula 1 06/14/22 02:00 92 Nasal Cannula 1 06/14/22 00:30 93 Nasal Cannula 1 06/14/22 00:00 91 Nasal Cannula 1 06/13/22 23:30 93 Nasal Cannula 1 06/14/22 00:39 93 Nasal Cannula 2 06/13/22 23:00 87 L Room Air 06/13/22 22:50 88 L Room Air 06/13/22 22:30 91 Room Air 06/13/22 22:00 93 Nasal Cannula 2 06/13/22 21:00 92 Nasal Cannula 2 06/13/22 20:30 93 Nasal Cannula 2 06/13/22 19:51 97 Nasal Cannula 2 06/13/22 19:50 96 Nasal Cannula 2 Resident Activity Tracking Resident Involvement: Resident Care Provided Care Provided: Adult Hospital Medicine
[2022-06-14] MEDS ORDERED: methylPREDNISolone 40 MG in SYRINGE 0 ML IV SCH (08:00)
[2022-06-14] MEDS ORDERED: HYDROcodone/HOMATROPINE SYRUP 5MG/1.5MG 5ML UDP PO STA (08:57)
[2022-06-14 09:05] LABS: Albumin Level 3.6 gm/dl (3.4-5.0); Bilirubin Direct 0.4 mg/dl (0-0.2); Bilirubin,Total 1.1 mg/dl (0.2-1.0)
[2022-06-14 09:10] LABS: Total Protein 6.9 gm/dl (6.0-8.3)
[2022-06-14] MEDS: lisinopril 20 MG TAB PO SCH (09:27)
[2022-06-14] MEDS: guaiFENesin 600 MG TABCR PO SCH ×2 (09:27→20:23)
[2022-06-14] MEDS: GABAPENTIN 600 MG TAB PO PRN (09:28)
[2022-06-14] MEDS: buPROPion XL 150 MG TABCR PO SCH (09:28)
[2022-06-14] MEDS: TIMOLOL MALEATE 0.25% OP SOLN 5 ML BTL OP SCH ×2 (09:28→20:23)
[2022-06-14] MEDS: methylPREDNISolone 40 MG in SYRINGE 0 ML IV SCH ×2 (10:08→20:23)
[2022-06-14] MEDS: AZITHROMYCIN 250 MG TAB PO SCH (13:09)
--- NOTE | 2022-06-14 14:59 | Electrocardiogram Report ---
Test Reason : Blood Pressure : / mmHG Vent. Rate : 094 BPM Atrial Rate : 094 BPM P-R Int : 148 ms QRS Dur : 072 ms QT Int : 336 ms P-R-T Axes : 039 032 036 degrees QTc Int : 420 ms Normal sinus rhythm Normal ECG No previous ECGs available Confirmed by Mata Grayson ([id number]) on 06/14/2022 2:59:29 PM Referred By: REFERRED SELF Confirmed By:Mata Grayson
--- NOTE | 2022-06-14 18:22 | Billing Data ---
Date of Service June 14, 2022 Coding Level of Care Code 38854 SUB INP/OBS CARE MIN
[2022-06-14] MEDS: OXYMETAZOLINE 0.05% 30 ML BTL NAE SCH (20:23)
[2022-06-14] MEDS: HYDROcodone/HOMATROPINE SYRUP 5MG/1.5MG 5ML UDP PO PRN (20:33)
--- NOTE | 2022-06-14 21:12 | Ultrasound Report ---
US liver CLINICAL HISTORY: transaminitis, elevated R hemidiaphragm TECHNIQUE: Multiple real-time sonographic images of the right upper quadrant were obtained. Comparison: None available at the time of this dictation. FINDINGS: The liver is diffusely echogenic in appearance with poor ultrasound penetration, with normal contour, which is consistent with fatty infiltration. No focal mass lesions are seen. No intrahepatic duct al dilatation is seen. No gallstones or sludge are identified within the gallbladder. The gallbladde r wall is not thickened. There is no pericholecystic fluid present. A sonographic Dia's sign was n ot elicited by the python engineer. The common duct measures 0.5 cm in diameter at the level of the hep atic artery. The visualized portions of the pancreas appear normal. The right kidney shows normal echogenicity, cortical thickness and renal contour. The right kidney sh ows no evidence of hydronephrosis or mass. No ascites or free fluid is seen in Melendez's pouch. IMPRESSION: Unremarkable right upper quadrant ultrasound. ACT 112: Negative or not required by law. Electronically signed by: Lázaro Cast M.D. 06/14/2022 9:11 PM
[2022-06-15] MEDS: LEVOTHYROXINE SODIUM 75 MCG TABLET PO SCH (05:25)
[2022-06-15 06:25] LABS: Basophils # (auto) 0.01 K/uL (0-0.2); Basophils % (auto) 0.1 %; Hematocrit (blood only) 44.1 % (34.1-44.9); Hemoglobin 15.5 g/dl (12.0-16.0); Immature Granulocytes # (auto) 0.03 K/uL (0.00-0.02); Immature Granulocytes % (auto) 0.4 %; Lymphocytes # (auto) 1.33 K/uL (1.2-3.4); Lymphocytes % (auto) 16.4 %; Mean Corpuscular Hemoglobin 32.1 pg (25.0-34.0); Mean Corpuscular Hgb Conc 35.1 g/dL (32.0-36.0); Mean Corpuscular Volume 91.3 fL (80.0-100.0); Mean Platelet Volume 12.7 fL (9.4-12.3); Monocytes # (auto) 0.52 K/uL (0.24-0.82); Monocytes % (auto) 6.4 %; Neutrophils # (auto) 6.22 K/uL (1.4-6.5); Neutrophils % (auto) 76.7 %; Platelet Count 89 K/uL (130-400); RDW Coefficient of Variation 14.1 % (11.5-14.5); RDW Standard Deviation 47.4 fL (36.4-46.3); Red Blood Count 4.83 M/uL (3.93-5.22); White Blood Count 8.11 K/ul (4.8-10.8)
--- NOTE | 2022-06-15 06:39 | Discharge Summary ---
Date of Service June 15, 2022 Admission HPI Per Admitting Provider The patient is a 62-year-old female with a past medical history including depression, neuropathy, hypothyroidism, hypertension and glaucoma she presents to the emergency department with complaints noted above. Pulse ox in the emergency department bottomed at a level of 87%, and improved to 93% on 2 L nasal cannula oxygen. She did have some mild subjective improvement following dexamethasone 10 mg IV and a DuoNeb treatment from the ED Admission Exam Per Admitting Provider The patient is awake, alert and oriented 3, well developed and well nourished, normocephalic and atraumatic, lying in bed and in no acute distress. HEENT--PERRL, EOMI, mucous membranes and oropharynx dry. Neck--supple. No JVD. No bruits. Thyroid normal, trachea midline, no adenopathy. Heart--normal S1 and S2. No murmurs, rubs or gallops. Lungs--coarse breath sounds with wheezes bilaterally. No respiratory distress, no accessory muscle use. Abdomen--normal bowel sounds and soft. Nontender. Nondistended, no hernias or masses, no organomegaly. Obese Extremities--no cyanosis or clubbing. No edema. Dermatologic--normal skin turgor, normal color, no abnormal lymph nodes, no rash. Neurologic--cranial nerves II through XII grossly intact. Rheumatologic--normal range of motion. Psychiatric--normal affect. Principal Diagnosis viral pneumonia with hypoxemia Discharge Exam General: 62-year old female who is alert, oriented, but appears tired. HEENT: NCAT. - Eyes - Sclera are white, anicteric, and without injection. - Mouth - MMM - Neck - supple, no appreciable JVD Cardiac: Normal rate and regular rhythm; S1 and S2 present with no murmurs, rubs, or gallops. Pulmonary: Good respiratory effort with symmetric expansion of the chest. No use of accessory muscles. Coarse breath sounds in the RLL, with bilateral expiratory wheezes heard in the upper lung loaiza b/l Abdominal: Normoactive bowel sounds. Abdomen was soft, nondistended, and non- tender to palpation. Extremities: Upper and lower extremities are warm and well perfused. No peripheral edema in the lower extremities bilaterally Psych: Well-developed, well-nourished, appropriately dressed for occasion. Behavior is cooperative and appropriate. Affect is WNL. Insight is appropriate. Discharge Data Allergies Allergy/AdvReac Type Severity Reaction Status Date / Time No Known Allergies Allergy Verified 06/13/22 20:31 Consultations 06/13/22 22:58 ED Decision to Admit Stat Ordered Studies 06/14/22 07:48 US RUQ [US liver] Routine CLINICAL HISTORY: transaminitis, elevated R hemidiaphragm TECHNIQUE: Multiple real-time sonographic images of the right upper quadrant were obtained. Comparison: None available at the time of this dictation. FINDINGS: The liver is diffusely echogenic in appearance with poor ultrasound penetration, with normal contour, which is consistent with fatty infiltration. No focal mass lesions are seen. No intrahepatic ductal dilatation is seen. No gallstones or sludge are identified within the gallbladder. The gallbladder wall is not thickened. There is no pericholecystic fluid present. A sonographic Dia's sign was not elicited by the human resources benefits specialist. The common duct measures 0.5 cm in diameter at the level of the hepatic artery. The visualized portions of the pancreas appear normal. The right kidney shows normal echogenicity, cortical thickness and renal contour. The right kidney shows no evidence of hydronephrosis or mass. No ascites or free fluid is seen in Melendez's pouch. IMPRESSION: Unremarkable right upper quadrant ultrasound. Hospital Course (1) Asthmatic bronchitis: 62-year-old female with history of HTN, hypothyroidism, anxiety and depression presented to [facility] for evaluation of SOB and respiratory symptoms x 5 days, subsequently found to be hypoxic in the ED, likely secondary to viral pneumonia vs. asthmatic bronchitis. Hypoxia -- likely secondary to viral pneumonia - Reported approx. 5 days of cough, shortness of breath, constitutional symptoms - Work-up as follows: -- On arrival: Leukopenia with low monocytes, lymphopenia --> normalized prior to discharge -- Mild transaminitis with elevated TBili, INR, thrombocytopenia, depressed Na --> all improved prior to discharge -- CXR demonstrating interstitial coarsening -- PCT negative. BCX - NGTD. - Suspect related to viral pneumonia vs. asthmatic bronchitis, especially given lab derangements and coarse of symptoms. - Symptom management while here included DuoNebs, methylprednisolone, azithromycin, and mucociliary clearance - At discharge: azithromycin and prednisone x 3 days Transaminitis -- improved prior to discharge -- hepatocellular pattern, does report significant drinking history (quit 3 years ago) - In context of respiratory illness and initial leukopenia with lymphopenia and low monocytes - Admission labs revealing TBili 1.2 (DBili 0.4), AST 114, ALT 50, ALP 115, Alb 3.6, INR 1.3, Na 133 - Improved prior to discharge: - Suspect related to viral illness. No known h/o cirrhosis. Low s/f tickborne, DILI. - RUQ: Fatty infiltration, no sonographic e/o cirrhosis Chronic Thrombocytopenia - Dating back to 2020. Baseline ~90. No sequelae of bleeding. - Consider hematology consult as outpatient and drawing of peripheral smear Leukopenia - With relative lymphopenia, decreased monocytes -- improved to 8.1 with normalized diff prior to discharge - Suspect secondary to viral illness, as above. Hypertension - Continue lisinopril 20 mg every morning Hypothyroidism - Continue levothyroxine sodium 75 mcg daily Anxiety and depression - Continue bupropion XL 150 mg every morning Peripheral neuropathy - Continue gabapentin 600 mg daily as needed Glaucoma - Continue timolol 1 drop in right eye twice daily Code: Full (2) Glaucoma: (3) Neuropathy: (4) Hypothyroidism: (5) Depression: (6) Anxiety: (7) HTN (hypertension): Total Time Total Time Spent Total Time Spent (In Minutes): 30 Discharge Plan Discharge Items Patient Disposition: Home - Self-Care Reason For Visit: ASTHMATIC BRONCHITIS Discharge Diagnosis: Hypoxemic respiratory failure Viral pneumonia Activity: Per Instructions section Non-emergency contact: Primary Care Provider Call non-emergency contact if: your symptoms worsen and your temperature is above 101 Follow-up/Referrals: Carlos Basurto DO [Primary Care Provider] - Diet: Regular Addtl Attending Provider Instructions: You were seen in [facility] for evaluation of shortness of breath. Upon arrival here, you underwent several tests determine cause your symptoms. Thankfully, you do not demonstrate any COVID, flu, or RSV. Combined between your symptoms and your chest x-ray and labs, we primarily suspect that your illness was secondary to a viral pneumonia. Thankfully you responded very well to inhaler treatments, steroids, and a medication that helps decrease inflammation within the lungs (azithromycin). During your recovery, it will be important to take time to rest and recover. Consider utilizing a humidifier next to your bed to help moisten the air, which can relax the lungs. You should see your illness continue to get better and better over the next several days. Please note the following medication changes/additions/deletions: -- Azithromycin once daily x 3 days -- Prednisone once daily x 3 days -- Albuterol 2 puffs every 4-6 hours as needed for wheezing / shortness of breath -- Utilize Mucinex and Flonase, both up to twice daily, to help your body clear mucus and sinus drainage if you feel it helps. Please follow-up with your PCP within 2 weeks to review this visit. In the interim and have an exam of your lungs. if you experience any worsening shortness of breath, chest pain, palpitations, feeling like you're going to pass out, possible nausea, vomiting, diarrhea please report to the emergency room for immediate evaluation. We wish you all the best in your recovery covering. Pending Studies at Discharge: No Stand-Alone Forms: My [facility], Smoking Cessation Medications and DC Order Prescriptions: New azithromycin 250 mg Tablet 250 mg PO QAM 3 Days Qty: 3 0RF prednisone 20 mg Tablet 40 mg PO QAM 3 Days Qty: 6 0RF Continued gabapentin 600 mg Tablet 600 mg PO DAILY PRN (Reason: Neuropathy) lisinopril 20 mg Tablet 20 mg PO QAM levothyroxine 75 mcg Tablet 75 mcg PO DAILYBB timolol 0.25 % Drops 1 drp OPR AMHS bupropion HCl [Wellbutrin XL] 150 mg Tablet Extended Release 24 Hr 150 mg PO QAM Admission Data Admit Date/Time: 06/13/22 23:34 Attending Provider: Greg Lux Admit Provider: Robbie Soler Primary Care Provider: Carlos Basurto Other Providers: Robbie Soler Resident Activity Tracking Resident Involvement: Resident Care Provided Care Provided: Adult Hospital Medicine
[2022-06-15] MEDS: ALBUT/IPRATROP 3MG/0.5MG NEB 3 ML VIAL NEB SCH ×4 (07:08→19:04)
[2022-06-15 07:22] LABS: Albumin Level 3.3 gm/dl (3.4-5.0); BUN Creatinine Ratio 23.5 (10-20); Calcium 8.4 mg/dl (8.5-10.1); Creatinine Clr Calc Pharmacy 88.8 ml/min; Est GFR (African American) 108.7 ml/min; Est GFR (Non-African American) 93.7 ml/min; Phosphorus 2.8 mg/dl (2.5-4.9)
[2022-06-15] MEDS: AZITHROMYCIN 250 MG TAB PO SCH (08:13)
[2022-06-15] MEDS: guaiFENesin 600 MG TABCR PO SCH ×2 (08:13→20:20)
[2022-06-15] MEDS: predniSONE 20 MG TAB PO SCH (08:13)
[2022-06-15] MEDS: buPROPion XL 150 MG TABCR PO SCH (08:13)
[2022-06-15] MEDS: lisinopril 20 MG TAB PO SCH (08:13)
[2022-06-15] MEDS: OXYMETAZOLINE 0.05% 30 ML BTL NAE SCH ×2 (08:14→20:21)
[2022-06-15] MEDS: TIMOLOL MALEATE 0.25% OP SOLN 5 ML BTL OP SCH ×2 (08:14→20:21)
[2022-06-15] MEDS: HYDROcodone/HOMATROPINE SYRUP 5MG/1.5MG 5ML UDP PO PRN ×2 (08:15→20:21)
[2022-06-15 08:38] LABS: Albumin Level 3.4 gm/dl (3.4-5.0); Bilirubin Direct 0.2 mg/dl (0-0.2); Bilirubin,Total 0.9 mg/dl (0.2-1.0)
[2022-06-15 08:43] LABS: Total Protein 6.5 gm/dl (6.0-8.3)
--- NOTE | 2022-06-15 09:43 | Hospitalist Progress Note ---
Date of Service June 15, 2022 Assessment & Plan (1) Asthmatic bronchitis: Plan: 62-year-old female with history of HTN, hypothyroidism, anxiety and depression presented to [facility] for evaluation of SOB and respiratory symptoms x 5 days, subsequently found to be hypoxic in the ED, likely secondary to viral pneumonia vs. asthmatic bronchitis. Hypoxia secondary to viral pneumonia vs asthmatic bronchitis - Reported approx. 5 days of cough, shortness of breath, constitutional symptoms - Work-up as follows: -- On arrival: Leukopenia with low monocytes, lymphopenia --> normalized on daily labs -- Mild transaminitis with elevated TBili, INR, thrombocytopenia, depressed Na --> all improving on daily labs -- CXR demonstrating interstitial coarsening -- PCT negative. BCX - NGTD. -- 12-pack year smoking history, quit 2 years ago - Suspect related to viral pneumonia vs. asthmatic bronchitis, especially given lab derangements and coarse of symptoms. - Symptom management while here: DuoNebs (JACOB), prednisone, azithromycin, and mucociliary clearance given possible overlap w/ asthmatic bronchitis - At discharge: azithromycin and prednisone x 3 days Transaminitis -- improving on daily labs -- hepatocellular pattern - In context of respiratory illness and initial leukopenia with lymphopenia and low monocytes - Admission labs revealing TBili 1.2 (DBili 0.4), AST 114, ALT 50, ALP 115, Alb 3.6, INR 1.3, Na 133 --> all improving on daily labs - Suspect related to viral illness. RUQ: Fatty infiltration, no sonographic e/o cirrhosis Chronic Thrombocytopenia - Dating back to 2020. Baseline ~90. No sequelae of bleeding. - Consider hematology consult as outpatient and drawing of peripheral smear after acute event has passed Leukopenia -- Resolved - With relative lymphopenia, decreased monocytes -- improved to 8.1 with normalized diff prior to discharge - Suspect secondary to viral illness, as above. Hypertension - Continue lisinopril 20 mg every morning Hypothyroidism - Continue levothyroxine sodium 75 mcg daily Anxiety and depression - Continue bupropion XL 150 mg every morning Peripheral neuropathy - Continue gabapentin 600 mg daily as needed Glaucoma - Continue timolol 1 drop in right eye twice daily Code: Full Diet: Reguar PPX: SCDs Dispo: Transfer to [place] [facility] (2) Glaucoma: (3) Neuropathy: (4) Hypothyroidism: (5) Depression: (6) Anxiety: (7) HTN (hypertension): Admission and Anticipated Discharge Date Admission Date: June 13, 2022 Supervising Physician Co-Signing Physician Notes I personally examined the patient and verified all sullivan points of history and exam, discussed case, and agree with decision making with Dr Ruano. Coughing and fatigue, but off oxygen. Vitals noted, in general she is awake and alert pleasant no distress. HEENT normocephalic atraumatic mucous membranes moist. Lungs coarse but no focal rales rhonchi or wheezes good air entry. Acute viral bronchitis/probably viral pneumonia with hypoxic respiratory failureas well as concomitant sinusitissteroids, supportive care, added Afrin to try to help with postnasal drip mediated cough. Is overall improvinghopefully home soon. Continue supportive care. Otherwise as above Subjective Didn't get much sleep last night. Transferred twice. Respiratory symptoms feeling maybe a little better but still not great. Hycodan helped. No n/v/d. No TANG/CP. Cough ongoing. Worried about liver results. Review of Systems Review of Systems: as per HPI Physical Exam Physical Exam: General: 62-year old female who is alert, oriented, but appears tired. HEENT: NCAT. - Eyes - Sclera are white, anicteric, and without injection. - Mouth - MMM - Neck - supple, no appreciable JVD Cardiac: Normal rate and regular rhythm; S1 and S2 present with no murmurs, rubs, or gallops. Pulmonary: Good respiratory effort with symmetric expansion of the chest. No use of accessory muscles. Coarse breath sounds without significant wheezes compared to yesterday Abdominal: Normoactive bowel sounds. Abdomen was soft, nondistended, and non- tender to palpation. Extremities: Upper and lower extremities are warm and well perfused. No peripheral edema in the lower extremities bilaterally Psych: Well-developed, well-nourished, appropriately dressed for occasion. Behavior is cooperative and appropriate. Affect is WNL. Insight is appropriate. Results & Data Results & Data ([facility]) Vital Signs (Past 12 Hours) Vital Signs Temp Pulse Pulse Pulse Resp BP BP 06/15/22 07:38 06/15/22 07:34 36.5 C 78 18 124/72 06/15/22 07:08 80 18 06/15/22 06:32 36.5 C 74 18 126/82 06/15/22 03:39 36.7 C 74 18 116/73 06/15/22 00:00 105/67 06/14/22 23:48 92 H 06/14/22 23:36 36.5 C 91 H 20 93/62 L Pulse Ox O2 Del Method 06/15/22 07:38 Room Air 06/15/22 07:34 94 Room Air 06/15/22 07:08 90 Room Air 06/15/22 06:32 92 Room Air 06/15/22 03:39 92 Room Air 06/15/22 00:00 06/14/22 23:48 06/14/22 23:36 92 Room Air Resident Activity Tracking Resident Involvement: Resident Care Provided Care Provided: Adult Hospital Medicine
[2022-06-15] MEDS: BENZONATATE 100 MG CAPSULE PO SCH ×3 (09:45→20:20)
--- NOTE | 2022-06-15 17:55 | Billing Data ---
Date of Service June 15, 2022 Coding Level of Care Code 02136 SUB INP/OBS CARE
--- NOTE | 2022-06-15 17:57 | Billing Data ---
Date of Service June 15, 2022 Coding Level of Care Code 43419 SUB INP/OBS CARE
[2022-06-16] MEDS ORDERED: COUGH DROP (SUGAR FREE) LOZ 24 LOZ/1 BOX BUCCAL ONE (04:45)
[2022-06-16] MEDS: LEVOTHYROXINE SODIUM 75 MCG TABLET PO SCH (05:52)
[2022-06-16 06:58] LABS: Hematocrit (blood only) 45.6 % (34.1-44.9); Hemoglobin 15.5 g/dl (12.0-16.0); Mean Corpuscular Hemoglobin 31.5 pg (25.0-34.0); Mean Corpuscular Volume 92.7 fL (80.0-100.0); Mean Platelet Volume 12.3 fL (9.4-12.3); Platelet Count 113 K/uL (130-400); RDW Coefficient of Variation 14.5 % (11.5-14.5); RDW Standard Deviation 49.1 fL (36.4-46.3); Red Blood Count 4.92 M/uL (3.93-5.22); White Blood Count 9.68 K/ul (4.8-10.8)
[2022-06-16] MEDS: ALBUT/IPRATROP 3MG/0.5MG NEB 3 ML VIAL NEB SCH ×4 (07:20→19:58)
[2022-06-16 07:36] LABS: Albumin Level 3.2 gm/dl (3.4-5.0); BUN Creatinine Ratio 23.3 (10-20); Calcium 8.5 mg/dl (8.5-10.1); Creatinine Clr Calc Pharmacy 70.2 ml/min; Est GFR (African American) 83.9 ml/min; Est GFR (Non-African American) 72.4 ml/min; Phosphorus 3.2 mg/dl (2.5-4.9)
[2022-06-16] MEDS: guaiFENesin 600 MG TABCR PO SCH ×2 (07:37→21:09)
[2022-06-16] MEDS: BENZONATATE 100 MG CAPSULE PO SCH ×3 (07:37→21:08)
[2022-06-16] MEDS: predniSONE 20 MG TAB PO SCH (07:38)
[2022-06-16] MEDS: GABAPENTIN 600 MG TAB PO PRN (07:38)
[2022-06-16] MEDS: AZITHROMYCIN 250 MG TAB PO SCH (07:38)
[2022-06-16] MEDS: OXYMETAZOLINE 0.05% 30 ML BTL NAE SCH ×2 (07:38→21:10)
[2022-06-16] MEDS: buPROPion XL 150 MG TABCR PO SCH (07:39)
[2022-06-16] MEDS: TIMOLOL MALEATE 0.25% OP SOLN 5 ML BTL OP SCH ×2 (07:39→21:10)
[2022-06-16] MEDS: lisinopril 20 MG TAB PO SCH (07:39)
[2022-06-16] MEDS: HYDROcodone/HOMATROPINE SYRUP 5MG/1.5MG 5ML UDP PO PRN ×2 (07:45→21:10)
[2022-06-16 07:49] LABS: Basophils # (auto) 0.02 K/uL (0-0.2); Basophils % (auto) 0.2 %; Eosinophils # (auto) 0.02 K/uL (0-0.50); Eosinophils % (auto) 0.2 %; Immature Granulocytes # (auto) 0.05 K/uL (0.00-0.02); Immature Granulocytes % (auto) 0.5 %; Lymphocytes # (auto) 2.78 K/uL (1.2-3.4); Lymphocytes % (auto) 28.7 %; Monocytes # (auto) 1.01 K/uL (0.24-0.82); Monocytes % (auto) 10.4 %
[2022-06-16] MEDS ORDERED: BUDESONIDE 0.25 MG/2 ML VIAL (PULMICORT) NEB SCH (09:00)
--- NOTE | 2022-06-16 09:13 | Hospitalist Progress Note ---
Date of Service June 16, 2022 Assessment & Plan (1) Asthmatic bronchitis: Plan: 62-year-old female with history of HTN, hypothyroidism, anxiety and depression presented to [facility] for evaluation of SOB and respiratory symptoms x 5 days, subsequently found to be hypoxic in the ED, likely secondary to viral pneumonia vs. asthmatic bronchitis. Hypoxia secondary to viral pneumonia vs asthmatic bronchitis - Reported approx. 5 days of cough, shortness of breath, constitutional symptoms - Work-up as follows: -- On arrival: Leukopenia with low monocytes, lymphopenia --> normalized on daily labs -- Mild transaminitis with elevated TBili, INR, thrombocytopenia, depressed Na --> all improving on daily labs -- CXR demonstrating interstitial coarsening -- PCT negative. BCX - NGTD -- 12-pack year smoking history, quit 2 years ago - Suspect related to viral pneumonia vs. asthmatic bronchitis, especially given lab derangements and coarse of symptoms. - Symptom management while here: DuoNebs (JACOB), prednisone, azithromycin, and mucociliary clearance given possible overlap w/ asthmatic bronchitis, added Pulmicort today given wheezing - At discharge: azithromycin and prednisone x 2 days - Will repeat CXR today, consider repeating labs such as CRP/PCT to evaluate potential superimposed bacterial pneumonia - Mg administered for airway inflammation - Attempt wean to RA today, encourage ambulation to see if O2 stable - Will need 2-step prior to discharge- anticipate hopefully tomorrow if respiratory status improves - Will need outpatient PFTs, possible sleep study as well Transaminitis -- improving on daily labs -- hepatocellular pattern - In context of respiratory illness and initial leukopenia with lymphopenia and low monocytes - Admission labs revealing TBili 1.2 (DBili 0.4), AST 114, ALT 50, ALP 115, Alb 3.6, INR 1.3, Na 133 --> all improving on daily labs - Suspect related to viral illness. RUQ: Fatty infiltration, no sonographic e/o cirrhosis Chronic Thrombocytopenia - Dating back to 2020. Baseline ~90. No sequelae of bleeding. - Consider hematology consult as outpatient and drawing of peripheral smear afte r acute event has passed Leukopenia -- Resolved - With relative lymphopenia, decreased monocytes -- improved to 8.1 with normalized diff prior to discharge - Suspect secondary to viral illness, as above. Hypertension - Continue lisinopril 20 mg every morning Hypothyroidism - Continue levothyroxine sodium 75 mcg daily Anxiety and depression - Continue bupropion XL 150 mg every morning Peripheral neuropathy - Continue gabapentin 600 mg daily as needed Glaucoma - Continue timolol 1 drop in right eye twice daily Code: Full Diet: Reguar PPX: SCDs Dispo: [facility] (2) Glaucoma: (3) Neuropathy: (4) Hypothyroidism: (5) Depression: (6) Anxiety: (7) HTN (hypertension): Admission and Anticipated Discharge Date Admission Date: June 13, 2022 Supervising Physician Co-Signing Physician Notes I saw and examined the patient and discussed case with medical student/medical case manager. I agree with the Assessment and Plan Subjective No acute events overnight. Pt awoke this morning struggling to breathe and was put on 2L NC. She did feel slightly better once on the oxygen. Denies any chest pain. Still coughing. Review of Systems Review of Systems: as per HPI Physical Exam Physical Exam: General: 62-year old female who is alert, oriented, but appears tired, mildly ill-appearing HEENT: NCAT. - Eyes - Sclera are white, anicteric, and without injection. - Mouth - MMM - Neck - supple, no appreciable JVD Cardiac: Normal rate and regular rhythm; S1 and S2 present with no murmurs, rubs, or gallops. Pulmonary: Good respiratory effort with symmetric expansion of the chest. No use of accessory muscles. Coarse breath sounds, inspiratory and expiratory wheezing of upper lung loaiza noted b/l Abdominal: Normoactive bowel sounds. Abdomen was soft, nondistended, and non- tender to palpation. Extremities: Upper and lower extremities are warm and well perfused. No peripheral edema in the lower extremities bilaterally Psych: Well-developed, well-nourished, appropriately dressed for occasion. Behavior is cooperative and appropriate. Affect is WNL. Insight is appropriate. Results & Data Results & Data ([facility]) Vital Signs (Past 12 Hours) Vital Signs Temp Pulse Resp BP BP Pulse Ox Pulse Ox 06/16/22 07:20 90 20 94 06/16/22 07:16 36.3 C L 68 16 138/88 94 06/16/22 05:56 92 06/16/22 05:56 92 06/15/22 22:17 92 06/15/22 22:17 36.4 C L 87 18 122/76 92 O2 Del Method O2 Del Method O2 Flow Rate O2 Flow Rate 06/16/22 07:20 Nasal Cannula 2 06/16/22 07:16 Nasal Cannula 2 06/16/22 05:56 Nasal Cannula 2 06/16/22 05:56 Nasal Cannula 2 06/15/22 22:17 Room Air 06/15/22 22:17 Room Air Resident Activity Tracking Resident Involvement: Resident Care Provided Care Provided: Adult Hospital Medicine
[2022-06-16] MEDS ORDERED: MAGNESIUM SULFATE 1GM / D5W BAG IV STA (10:34)
[2022-06-16] MEDS ORDERED: MAGNESIUM SULFATE / D5W 1 GM/100 ML BAG IV SCH (11:00)
--- NOTE | 2022-06-16 11:28 | XRay Report ---
XR chest 2V PA/lateral CLINICAL HISTORY: oxygen requirement increasing TECHNIQUE: 2 views of the chest were obtained. Comparison: Comparison is made to chest radiograph 06/13/2022 FINDINGS: No lines and tubes are seen. The cardiomediastinal silhouette is normal. There is elevation of the ri ght hemidiaphragm. Lungs are otherwise clear. No evidence of pleural effusion or pneumothorax. IMPRESSION: No acute chest disease. Redemonstration of elevation of the right hemidiaphragm. ACT 112: Negative or not required by law. Electronically signed by: Lázaro Cast M.D. 06/16/2022 11:25 AM
[2022-06-16] MEDS: MAGNESIUM SULFATE / D5W 1 GM/100 ML BAG IV SCH ×2 (12:27→14:08)
[2022-06-16] MEDS: BUDESONIDE 0.5 MG/2 ML VIAL (PULMICORT) NEB SCH (19:58)
[2022-06-16] MEDS: MELATONIN 3 MG TAB PO PRN (21:08)
[2022-06-17] MEDS: ALBUT/IPRATROP 3MG/0.5MG NEB 3 ML VIAL NEB SCH ×4 (01:46→19:38)
[2022-06-17] MEDS: LEVOTHYROXINE SODIUM 75 MCG TABLET PO SCH (05:58)
[2022-06-17] MEDS: BUDESONIDE 0.5 MG/2 ML VIAL (PULMICORT) NEB SCH ×2 (07:02→19:38)
[2022-06-17] MEDS: TIMOLOL MALEATE 0.25% OP SOLN 5 ML BTL OP SCH ×2 (08:06→20:41)
[2022-06-17] MEDS: GABAPENTIN 600 MG TAB PO PRN (08:07)
[2022-06-17] MEDS: guaiFENesin 600 MG TABCR PO SCH ×2 (08:07→20:43)
[2022-06-17] MEDS: lisinopril 20 MG TAB PO SCH (08:07)
[2022-06-17] MEDS: predniSONE 20 MG TAB PO SCH (08:07)
[2022-06-17] MEDS: BENZONATATE 100 MG CAPSULE PO SCH ×3 (08:07→20:42)
[2022-06-17] MEDS: AZITHROMYCIN 250 MG TAB PO SCH (08:08)
[2022-06-17] MEDS: buPROPion XL 150 MG TABCR PO SCH (08:08)
[2022-06-17] MEDS: HYDROcodone/HOMATROPINE SYRUP 5MG/1.5MG 5ML UDP PO PRN ×2 (08:48→20:46)
--- NOTE | 2022-06-17 09:22 | Hospitalist Progress Note ---
Date of Service June 17, 2022 Assessment & Plan (1) Asthmatic bronchitis: Plan: 62-year-old female with history of HTN, hypothyroidism, anxiety and depression presented to [facility] for evaluation of SOB and respiratory symptoms x 5 days, subsequently found to be hypoxic in the ED, likely secondary to viral pneumonia vs. asthmatic bronchitis. Hypoxia secondary to viral pneumonia vs asthmatic bronchitis - Reported approx. 5 days of cough, shortness of breath, constitutional symptoms - Work-up as follows: -- On arrival: Leukopenia with low monocytes, lymphopenia --> normalized on daily labs -- Mild transaminitis with elevated TBili, INR, thrombocytopenia, depressed Na --> all improving on daily labs -- CXR demonstrating interstitial coarsening -- PCT negative. BCX - NGTD on admission -- 12-pack year smoking history, quit 2 years ago - Suspect related to viral pneumonia vs. asthmatic bronchitis, especially given lab derangements and coarse of symptoms. - Symptom management while here: DuoNebs (JACOB), Pulmicort, prednisone, azithromycin, and mucociliary clearance given possible overlap w/ asthmatic bronchitis - At discharge: azithromycin and prednisone to complete 5 day total course - Repeat CXR, PCT/CRP negative on 06/16 - Mg given on 06/16 for airway inflammation - Attempt wean to RA today, encourage ambulation to see if O2 stable - Pt did not qualify for home oxygen per 2-step - Will need outpatient PFTs, possible sleep study as well Transaminitis -- improving on daily labs -- hepatocellular pattern - In context of respiratory illness and initial leukopenia with lymphopenia and low monocytes - Admission labs revealing TBili 1.2 (DBili 0.4), AST 114, ALT 50, ALP 115, Alb 3.6, INR 1.3, Na 133 --> all improving on daily labs - Suspect related to viral illness. RUQ: Fatty infiltration, no sonographic e/o cirrhosis Chronic Thrombocytopenia - Dating back to 2020. Baseline ~90. No sequelae of bleeding. - Consider hematology consult as outpatient and drawing of peripheral smear after acute event has passed Leukopenia -- Resolved - With relative lymphopenia, decreased monocytes -- improved to 8.1 with normalized diff prior to discharge - Suspect secondary to viral illness, as above. Hypertension - Continue lisinopril 20 mg every morning Hypothyroidism - Continue levothyroxine sodium 75 mcg daily Anxiety and depression - Continue bupropion XL 150 mg every morning Peripheral neuropathy - Continue gabapentin 600 mg daily as needed Glaucoma - Continue timolol 1 drop in right eye twice daily Code: Full Diet: Reguar PPX: SCDs Dispo: MST (2) Glaucoma: (3) Neuropathy: (4) Hypothyroidism: (5) Depression: (6) Anxiety: (7) HTN (hypertension): Admission and Anticipated Discharge Date Admission Date: June 13, 2022 Supervising Physician Co-Signing Physician Notes I saw and examined the patient and discussed case with medical student/health care / medical job titles. I agree with the Assessment and Plan Subjective No acute events overnight. Pt states her breathing is better today. She is coughing less. She hopes to come off supplemental oxygen today and will ambulate more. Denies any chest pain. Review of Systems Review of Systems: as per HPI Physical Exam Physical Exam: General: 62-year old female who is alert, oriented, appears less tired HEENT: NCAT. - Eyes - Sclera are white, anicteric, and without injection. - Mouth - MMM - Neck - supple, no appreciable JVD Cardiac: Normal rate and regular rhythm; S1 and S2 present with no murmurs, rubs, or gallops. Pulmonary: Good respiratory effort with symmetric expansion of the chest. No use of accessory muscles. Coarse breath sounds and inspiratory and expiratory wheezing of upper lung loaiza noted b/l but improved from day prior Abdominal: Normoactive bowel sounds. Abdomen was soft, nondistended, and non- tender to palpation. Extremities: Upper and lower extremities are warm and well perfused. No peripheral edema in the lower extremities bilaterally Psych: Well-developed, well-nourished, appropriately dressed for occasion. Behavior is cooperative and appropriate. Affect is WNL. Insight is appropriate. Results & Data Results & Data ([facility]) Vital Signs (Past 12 Hours) Vital Signs Temp Pulse Pulse Pulse Pulse Resp Resp 06/17/22 08:18 36.3 C L 67 17 06/17/22 07:31 78 74 70 22 06/17/22 07:02 80 20 06/16/22 22:14 36.5 C 84 20 Resp Resp BP BP Pulse Ox Pulse Ox Pulse Ox 06/17/22 08:18 132/87 93 06/17/22 07:31 18 16 90 92 06/17/22 07:02 97 06/16/22 22:14 139/84 91 Pulse Ox O2 Del Method O2 Flow Rate 06/17/22 08:18 Nasal Cannula 2 06/17/22 07:31 93 06/17/22 07:02 Nasal Cannula 2 06/16/22 22:14 Room Air Resident Activity Tracking Resident Involvement: Resident Care Provided Care Provided: Adult Hospital Medicine
--- NOTE | 2022-06-17 13:03 | Discharge Summary ---
Date of Service June 17, 2022 Admission HPI Per Admitting Provider Chief Complaint: The patient presents to the emergency department with complaint of 5 days of progressively worsening cough, shortness of breath and today developed a temperature. Primary Care Provider: Carlos Basurto DO The patient is a 62-year-old female with a past medical history including depression, neuropathy, hypothyroidism, hypertension and glaucoma she presents to the emergency department with complaints noted above. Pulse ox in the emergency department bottomed at a level of 87%, and improved to 93% on 2 L nasal cannula oxygen. She did have some mild subjective improvement following dexamethasone 10 mg IV and a DuoNeb treatment from the ED Admission Exam Per Admitting Provider The patient is awake, alert and oriented 3, well developed and well nourished, normocephalic and atraumatic, lying in bed and in no acute distress. HEENT--PERRL, EOMI, mucous membranes and oropharynx dry. Neck--supple. No JVD. No bruits. Thyroid normal, trachea midline, no adenopathy. Heart--normal S1 and S2. No murmurs, rubs or gallops. Lungs--coarse breath sounds with wheezes bilaterally. No respiratory distress, no accessory muscle use. Abdomen--normal bowel sounds and soft. Nontender. Nondistended, no hernias or masses, no organomegaly. Obese Extremities--no cyanosis or clubbing. No edema. Dermatologic--normal skin turgor, normal color, no abnormal lymph nodes, no rash. Neurologic--cranial nerves II through XII grossly intact. Rheumatologic--normal range of motion. Psychiatric--normal affect. Principal Diagnosis viral pneumonia asthmatic bronchitis Discharge Exam Excerpted from Dr. Persaud's Note: General: 62-year old female who is alert, oriented, but appears tired, mildly ill-appearing HEENT: NCAT. - Eyes - Sclera are white, anicteric, and without injection. - Mouth - MMM - Neck - supple, no appreciable JVD Cardiac: Normal rate and regular rhythm; S1 and S2 present with no murmurs, rubs, or gallops. Pulmonary: Good respiratory effort with symmetric expansion of the chest. No use of accessory muscles. Coarse breath sounds, inspiratory and expiratory wheezing of upper lung loaiza noted b/l Abdominal: Normoactive bowel sounds. Abdomen was soft, nondistended, and non- tender to palpation. Extremities: Upper and lower extremities are warm and well perfused. No peripheral edema in the lower extremities bilaterally Psych: Well-developed, well-nourished, appropriately dressed for occasion. Behavior is cooperative and appropriate. Affect is WNL. Insight is appropriate. Discharge Data Allergies Allergy/AdvReac Type Severity Reaction Status Date / Time No Known Allergies Allergy Verified 06/13/22 20:31 Consultations 06/13/22 22:58 ED Decision to Admit Stat Ordered Studies 06/14/22 07:48 US RUQ [US liver] Routine IMPRESSION: No acute chest disease. Redemonstration of elevation of the right hemidiaphragm. Hospital Course (1) Asthmatic bronchitis: 62-year-old female with history of HTN, hypothyroidism, anxiety and depression presented to [facility] for evaluation of SOB and respiratory symptoms x 5 days, subsequently found to be hypoxic in the ED, likely secondary to viral pneumonia vs. asthmatic bronchitis. Hypoxia secondary to viral pneumonia vs asthmatic bronchitis - Reported approx. 5 days of cough, shortness of breath, constitutional symptoms - Work-up as follows: -- On arrival: Leukopenia with low monocytes, lymphopenia --> normalized -- Mild transaminitis with elevated TBili, INR, thrombocytopenia, depressed Na --> improved -- CXR and repeat demonstrating interstitial coarsening -- PCT negative. BCX - NGTD on admission -- 12-pack year smoking history, quit 2 years ago - Suspect related to viral pneumonia vs. asthmatic bronchitis, especially given lab derangements and coarse of symptoms. - Symptom management while here: DuoNebs (JACOB), Pulmicort, Mg, prednisone, azithromycin, and mucociliary clearance given possible overlap w/ asthmatic bronchitis - At discharge: azithromycin and prednisone and Flovent JACOB, albuterol PRN - Attempt wean to RA today, encourage ambulation to see if O2 stable -- Pt did not qualify for home oxygen per 2-step - Will need outpatient PFTs, possible sleep study as well Transaminitis -- improved -- hepatocellular pattern - In context of respiratory illness and initial leukopenia with lymphopenia and low monocytes - Admission labs revealing TBili 1.2 (DBili 0.4), AST 114, ALT 50, ALP 115, Alb 3.6, INR 1.3, Na 133 --> all improving on daily labs - Suspect related to viral illness. RUQ: Fatty infiltration, no sonographic e/o cirrhosis Chronic Thrombocytopenia - Dating back to 2020. Baseline ~90. No sequelae of bleeding. - Consider hematology consult as outpatient and drawing of peripheral smear after acute event has passed Leukopenia -- Resolved - With relative lymphopenia, decreased monocytes -- improved to 8.1 with normalized diff prior to discharge - Suspect secondary to viral illness, as above. Hypertension - Continue lisinopril 20 mg every morning Hypothyroidism - Continue levothyroxine sodium 75 mcg daily Anxiety and depression - Continue bupropion XL 150 mg every morning Peripheral neuropathy - Continue gabapentin 600 mg daily as needed Glaucoma - Continue timolol 1 drop in right eye twice daily Code: Full (2) Glaucoma: (3) Neuropathy: (4) Hypothyroidism: (5) Depression: (6) Anxiety: (7) HTN (hypertension): Discharge Plan Discharge Items Patient Disposition: Home - Self-Care Reason For Visit: ASTHMATIC BRONCHITIS Discharge Diagnosis: Hypoxemic respiratory failure Viral pneumonia Activity: Per Instructions section Non-emergency contact: Primary Care Provider Call non-emergency contact if: your symptoms worsen and your temperature is above 101 Follow-up/Referrals: Carlos Basurto, [Primary Care Provider] - 06/23/22 3:10 pm (Dr Chris) Diet: Regular Addtl Attending Provider Instructions: You were seen in [facility] for evaluation of shortness of breath. Upon arrival here, you underwent several tests determine cause your symptoms. Thankfully, you do not demonstrate any COVID, flu, or RSV. Combined between your symptoms and your chest x-ray and labs, we primarily suspect that your illness was secondary to a viral pneumonia. Thankfully you responded very well to inhaler treatments, steroids, and a medication that helps decrease inflammation within the lungs (azithromycin). During your recovery, it will be important to take time to rest and recover. Consider utilizing a humidifier next to your bed to help moisten the air, which can relax the lungs. You should see your illness continue to get better and better over the next several days. Please note the following medication changes/additions/deletions: -- Azithromycin once daily x 2 days -- Prednisone once daily x 2 days -- Albuterol 2 puffs every 4-6 hours as needed for wheezing / shortness of breath -- Flovent 1 puff twice daily x 15 days or until directed by your PCP -- Utilize Mucinex and Flonase, both up to twice daily, to help your body clear mucus and sinus drainage if you feel it helps. Please follow-up with your PCP within 3-5 days to review this visit. In the interim and have an exam of your lungs. if you experience any worsening shortness of breath, chest pain, palpitations, feeling like you're going to pass out, possible nausea, vomiting, diarrhea please report to the emergency room for immediate evaluation. We wish you all the best in your recovery covering. Pending Studies at Discharge: No Stand-Alone Forms[facility] Medications and DC Order Prescriptions: New prednisone 20 mg Tablet 40 mg PO QAM 3 Days Qty: 6 0RF prednisone 20 mg tablet 40 mg PO DAILY 2 Days Qty: 4 0RF azithromycin 250 mg tablet 250 mg PO DAILY 2 Days Qty: 2 0RF albuterol sulfate 90 mcg/actuation HFA aerosol inhaler 2 inh inhalation Q6H PRN (Reason: wheezing/shortness of breath) 30 Days Qty: 6.7 1RF Flovent Diskus 100 mcg/actuation blister with device 1 inh inhalation BID 15 Days Qty: 60 0RF Continued gabapentin 600 mg Tablet 600 mg PO DAILY PRN (Reason: Neuropathy) lisinopril 20 mg Tablet 20 mg PO QAM levothyroxine 75 mcg Tablet 75 mcg PO DAILYBB timolol 0.25 % Drops 1 drp OPR AMHS bupropion HCl [Wellbutrin XL] 150 mg Tablet Extended Release 24 Hr 150 mg PO QAM Krames/Other Patient Handouts: Acute Bronchitis Admission Data Admit Date/Time: 06/13/22 23:34 Attending Provider: Elian Gatica. Admit Provider: Robbie Soler Primary Care Provider: Carlos Basurto Other Providers: Robbie Soler Resident Activity Tracking Resident Involvement: Resident Care Provided Care Provided: Adult Hospital Medicine
[2022-06-17] MEDS: MELATONIN 3 MG TAB PO PRN (20:46)
[2022-06-18] MEDS: ALBUT/IPRATROP 3MG/0.5MG NEB 3 ML VIAL NEB SCH ×3 (00:05→12:13)
[2022-06-18] MEDS: LEVOTHYROXINE SODIUM 75 MCG TABLET PO SCH (05:50)
[2022-06-18] MEDS: BUDESONIDE 0.5 MG/2 ML VIAL (PULMICORT) NEB SCH (07:18)
[2022-06-18] MEDS: BENZONATATE 100 MG CAPSULE PO SCH ×2 (08:27→14:31)
[2022-06-18] MEDS: guaiFENesin 600 MG TABCR PO SCH (08:28)
[2022-06-18] MEDS: predniSONE 20 MG TAB PO SCH (08:28)
[2022-06-18] MEDS: buPROPion XL 150 MG TABCR PO SCH (08:28)
[2022-06-18] MEDS: lisinopril 20 MG TAB PO SCH (08:29)
[2022-06-18] MEDS: TIMOLOL MALEATE 0.25% OP SOLN 5 ML BTL OP SCH (08:30)
[2022-06-18] MEDS: HYDROcodone/HOMATROPINE SYRUP 5MG/1.5MG 5ML UDP PO PRN (11:28)
--- NOTE | 2022-06-18 12:41 | Discharge Summary ---
Date of Service June 18, 2022 Admission HPI Per Admitting Provider Chief Complaint: The patient presents to the emergency department with complaint of 5 days of progressively worsening cough, shortness of breath and today developed a temperature. Primary Care Provider: Carlos Basurto DO The patient is a 62-year-old female with a past medical history including depression, neuropathy, hypothyroidism, hypertension and glaucoma she presents to the emergency department with complaints noted above. Pulse ox in the emergency department bottomed at a level of 87%, and improved to 93% on 2 L nasal cannula oxygen. She did have some mild subjective improvement following dexamethasone 10 mg IV and a DuoNeb treatment from the ED Admission Exam Per Admitting Provider The patient is awake, alert and oriented 3, well developed and well nourished, normocephalic and atraumatic, lying in bed and in no acute distress. HEENT--PERRL, EOMI, mucous membranes and oropharynx dry. Neck--supple. No JVD. No bruits. Thyroid normal, trachea midline, no adenopathy. Heart--normal S1 and S2. No murmurs, rubs or gallops. Lungs--coarse breath sounds with wheezes bilaterally. No respiratory distress, no accessory muscle use. Abdomen--normal bowel sounds and soft. Nontender. Nondistended, no hernias or masses, no organomegaly. Obese Extremities--no cyanosis or clubbing. No edema. Dermatologic--normal skin turgor, normal color, no abnormal lymph nodes, no rash. Neurologic--cranial nerves II through XII grossly intact. Rheumatologic--normal range of motion. Psychiatric--normal affect. Principal Diagnosis Bronchitis Discharge Exam General: 62-year old female who is alert, oriented, appears less tired HEENT: NCAT. - Eyes - Sclera are white, anicteric, and without injection. - Mouth - MMM - Neck - supple, no appreciable JVD Cardiac: Normal rate and regular rhythm; S1 and S2 present with no murmurs, rubs, or gallops. Pulmonary: Good respiratory effort with symmetric expansion of the chest. No use of accessory muscles. Coarse breath sounds and inspiratory and expiratory wheezing of upper lung loaiza noted b/l but slightly improved from day prior Abdominal: Normoactive bowel sounds. Abdomen was soft, nondistended, and non- tender to palpation. Extremities: Upper and lower extremities are warm and well perfused. No peripheral edema in the lower extremities bilaterally Psych: Well-developed, well-nourished, appropriately dressed for occasion. Behavior is cooperative and appropriate. Affect is WNL. Insight is appropriate. Discharge Data Allergies Allergy/AdvReac Type Severity Reaction Status Date / Time No Known Allergies Allergy Verified 06/13/22 20:31 Consultations 06/13/22 22:58 ED Decision to Admit Stat Ordered Studies 06/14/22 07:48 US RUQ [US liver] Routine Hospital Course (1) Asthmatic bronchitis: 62-year-old female with history of HTN, hypothyroidism, anxiety and depression presented to [facility] for evaluation of SOB and respiratory symptoms x 5 days, subsequently found to be hypoxic in the ED, likely secondary to viral pneumonia vs. asthmatic bronchitis. Hypoxia secondary to viral pneumonia vs asthmatic bronchitis - Reported approx. 5 days of cough, shortness of breath, constitutional symptoms - Work-up as follows: -- On arrival: Leukopenia with low monocytes, lymphopenia --> normalized -- Mild transaminitis with elevated TBili, INR, thrombocytopenia, depressed Na --> improved -- CXR and repeat demonstrating interstitial coarsening -- PCT negative. BCX - NGTD on admission -- 12-pack year smoking history, quit 2 years ago - Suspect related to viral pneumonia vs. asthmatic bronchitis, especially given lab derangements and coarse of symptoms. - Symptom management while here: DuoNebs (JACOB), Pulmicort, Mg, prednisone, azithromycin, and mucociliary clearance given possible overlap w/ asthmatic bronchitis - At discharge: Advair JACOB, albuterol PRN - Attempt wean to RA today, encourage ambulation to see if O2 stable -- Pt did not qualify for home oxygen per 2-step - Will need outpatient PFTs, possible sleep study as well Transaminitis -- improved -- hepatocellular pattern - In context of respiratory illness and initial leukopenia with lymphopenia and low monocytes - Admission labs revealing TBili 1.2 (DBili 0.4), AST 114, ALT 50, ALP 115, Alb 3.6, INR 1.3, Na 133 --> all improving on daily labs - Suspect related to viral illness. RUQ: Fatty infiltration, no sonographic e/o cirrhosis Chronic Thrombocytopenia - Dating back to 2020. Baseline ~90. No sequelae of bleeding. - Consider hematology consult as outpatient and drawing of peripheral smear after acute event has passed Leukopenia -- Resolved - With relative lymphopenia, decreased monocytes -- improved to 8.1 with normalized diff prior to discharge - Suspect secondary to viral illness, as above. Hypertension - Continue lisinopril 20 mg every morning Hypothyroidism - Continue levothyroxine sodium 75 mcg daily Anxiety and depression - Continue bupropion XL 150 mg every morning Peripheral neuropathy - Continue gabapentin 600 mg daily as needed Glaucoma - Continue timolol 1 drop in right eye twice daily Code: Full (2) Glaucoma: (3) Neuropathy: (4) Hypothyroidism: (5) Depression: (6) Anxiety: (7) HTN (hypertension): Total Time Total Time Spent Total Time Spent (In Minutes): 30 Discharge Plan Discharge Items Patient Disposition: Home - Self-Care Reason For Visit: ASTHMATIC BRONCHITIS Discharge Diagnosis: Hypoxemic respiratory failure Viral pneumonia Activity: Per Instructions section Non-emergency contact: Primary Care Provider Call non-emergency contact if: your symptoms worsen and your temperature is above 101 Follow-up/Referrals: Carlos Basurto, [Primary Care Provider] - 06/23/22 3:10 pm (Dr Chris) Diet: Regular Addtl Attending Provider Instructions: You were seen in [facility] for evaluation of shortness of breath. Upon arrival here, you underwent several tests determine cause your symptoms. Thankfully, you do not demonstrate any COVID, flu, or RSV. Combined between your symptoms and your chest x-ray and labs, we primarily suspect that your illness was secondary to a viral pneumonia. Thankfully you responded very well to inhaler treatments, steroids, and a medication that helps decrease inflammation within the lungs (azithromycin). During your recovery, it will be important to take time to rest and recover. Consider utilizing a humidifier next to your bed to help moisten the air, which can relax the lungs. You should see your illness continue to get better and better over the next several days. Please note the following medication changes/additions/deletions: -- Albuterol 2 puffs every 4-6 hours as needed for wheezing / shortness of breath -- Advair 1 puff, twice daily, for the next 30 days (talk to your family doctor about this) -- Utilize Mucinex and Flonase, both up to twice daily, to help your body clear mucus and sinus drainage if you feel it helps. Please follow-up with your PCP within 3-5 days to review this visit. In the interim and have an exam of your lungs. if you experience any worsening shortness of breath, chest pain, palpitations, feeling like you're going to pass out, possible nausea, vomiting, diarrhea please report to the emergency room for immediate evaluation. We wish you all the best in your recovery covering. Pending Studies at Discharge: No Stand-Alone Forms: My [facility] Medications and DC Order Prescriptions: New albuterol sulfate 90 mcg/actuation HFA aerosol inhaler 2 inh inhalation Q6H PRN (Reason: wheezing/shortness of breath) 30 Days Qty: 6.7 1RF fluticasone propion-salmeterol [Advair Diskus] 250-50 mcg/dose blister with device 1 inh inhalation BID 30 Days Qty: 60 0RF Continued gabapentin 600 mg Tablet 600 mg PO DAILY PRN (Reason: Neuropathy) lisinopril 20 mg Tablet 20 mg PO QAM levothyroxine 75 mcg Tablet 75 mcg PO DAILYBB timolol 0.25 % Drops 1 drp OPR AMHS bupropion HCl [Wellbutrin XL] 150 mg Tablet Extended Release 24 Hr 150 mg PO QAM Discharge Orders: Discharge Order (Routine); Ordered 06/18/22 Ordered By: Malena Alvarado/Other Patient Handouts: Acute Bronchitis, Discharge Instructions for Asthma, ED Bronchitis with Wheezing (Adult) Admission Data Admit Date/Time: 06/13/22 23:34 Attending Provider: Elian Gatica. Admit Provider: Robbie Soler Primary Care Provider: Carlos Basurto Other Providers: Robbie Soler Other Interventions: Discharge Summary Assessment (RN) Last Done: 06/18/22 13:32 Supervising Physician Co-Signing Physician Notes I have seen and examined patient. I agree with the hospital clinical course and above discharge summary as documented by medical assistant float. Resident Activity Tracking Resident Involvement: Resident Care Provided Care Provided: Adult Hospital Medicine
== END 2022-06-18 15:24 | disposition home or self-care (01) | DRG 193 ==
LOC: ED 18:17 → 2E 23:34 → SUATTDRO 23:34 → 2E 06-14 02:24 → 2N 06-14 22:13 → 3W 06-15 07:31